=== PATIENT | female | born 1950 | race Caucasian/White ===

== ENCOUNTER 2023-01-09 12:05 | Observation (INO) ==
[2023-01-09] MEDS ORDERED: IOPAMIDOL 100 ML BOTTLE IV ONE ×2 (12:06→18:56)
[2023-01-09] MEDS ORDERED: 0.9 % SODIUM CHLORIDE 1,000 ML IV ONE (12:21)
[2023-01-09] MEDS ORDERED: ACETAMINOPHEN 325 MG TABLET PO ONE (12:25)
[2023-01-09] MEDS ORDERED: cefTRIAXone 1 GM VIAL IV SCH (12:30)
[2023-01-09 12:37] LABS: POC Calcium, Ionized 1.07 (1.16-1.32); POC Creatinine 0.9 (0.6-1.2); POC Potassium 3.3 (3.3-5.1)
[2023-01-09 13:19] LABS: Basophils # (Auto) 0.04 K/mcL (0.00-0.30); Basophils % (Auto) 0.2 % (0.0-2.0); Eosinophils # (Auto) 0 K/mcL (0.00-0.70); Eosinophils % (Auto) 0 % (0.0-7.0); Hematocrit 39.2 % (34.1-44.9); Hemoglobin 13.1 g/dL (11.2-15.7); Lymphocytes # (Auto) 1.11 K/mcL (1.50-4.80); Lymphocytes % (Auto) 4.2 % (15.5-49.0); Mean Cell Volume 85.8 fL (80.0-100.0); Mean Corpuscular HGB Conc 33.4 g/dL (31.0-36.0); Mean Platelet Volume 10.6 fL (8.8-12.5); Monocytes # (Auto) 2.48 K/mcL (0.10-0.90); Monocytes % (Auto) 9.3 % (1.0-12.0); Neutrophils % (Auto) 85.4 % (38.0-78.0); Platelet Count 354 K/mcL (140-440); RBC 4.57 M/mcL (3.59-5.38); Red Cell Distribution Width 14.8 % (11.5-14.5); WBC 26.6 K/mcL (4.5-11.0)
--- NOTE | 2023-01-09 13:34 | XRay Report ---
CLINICAL INFORMATION: Dyspnea COMPARISON: 12/18/2022 TECHNIQUE: Portable FINDINGS: The heart size, mediastinum and pulmonary vessels are unremarkable. Large wedge-shaped density in the lateral right mid thorax spans 10 x 3 cm. A moderate wedge-shaped density seen in the lateral mid left thorax 7 x 3 cm. These are new since the comparison exam less than one month prior. Suspect either atypical infiltrate or pulmonary infarct. The right midthoracic density could also represent loculated pleural fluid. Minor left basilar atelectasis noted. IMPRESSION: Large wedge-shaped pleural-based density lateral mid thorax (10 x 3 cm). Moderate wedge-shaped density lateral mid thorax 7 x 3 cm. Atypical infiltrates versus pulmonary infarcts versus pleural fluid. Suggest: CT pulmonary angiogram Interpreted and Authenticated by: Oscar Barnes 01/09/23
--- NOTE | 2023-01-09 13:37 | Emergency Department Note ---
SOB HPI General Chief Complaint: Shortness of Breath/Dyspnea Stated Complaint: SOB Time Seen by Provider: 01/09/23 12:10 Source: patient Mode of arrival: ambulatory Limitations: no limitations History of Present Illness HPI Narrative: 72-year-old female patient with a history of psoriatic arthritis on immunosuppressive medications presents with complaints of shortness of breath. They returned from [place] this morning and have been traveling for the past 2 days. When they got off the plane today she was short of breath and her states that she was obtunded and not responsive. She does have a history of asthma and they gave her her short acting albuterol treatment, but this was not effective. For this reason they come to the ER for evaluation. Patient states that they went to [place] 2 weeks ago and at that time both of them had a cold. She started feeling more short of breath about 7 days ago. She denies fever/chills/sweats. The patient presents with tachycardia and a low-grade temperature of 100 Fahrenheit. She denies chest pain, denies a cardiac history. She does have a history of DVT with history of cancer. She was previously on Eliquis but has not taken this for some time. She does take a natural K-1 supplement. Related Data Home Medications Medication Instructions Recorded Confirmed albuterol sulfate 90 mcg/actuation 2 puff inhalation .Q4-6H PRN 06/23/18 01/09/23 aerosol inhaler (ProAir HFA) Dyspnea fluticasone furoate 200 1 inh inhalation QDAY 06/23/18 01/09/23 mcg-vilanterol 25 mcg/dose inhalation powder (Breo Ellipta) cholecalciferol (vitamin D3) 25 4,000 unit PO QDAY 11/06/20 01/09/23 mcg (1,000 unit) capsule Allergies Allergy/AdvReac Type Severity Reaction Status Date / Time chlorhexidine Allergy Unknown Rash Verified 12/22/22 08:14 ibuprofen Allergy Unknown Lip Verified 12/22/22 08:14 Swelling Review of Systems ROS ROS Narrative: Narrative: All systems ED: reviewed and negative except as stated. [facility] Narrative Patient History Narrative: Narrative: Medical/Surgical/Family History All Active Problems (Updated 01/09/23 @ 17:57 by Charis Castañeda PA-C) Obese (Chronic) Seborrheic keratosis (Chronic) Postmenopausal bleeding (Chronic) Adenocarcinoma of uterus (Chronic) DVT (deep venous thrombosis) (Chronic) Elevated blood pressure reading without diagnosis of hypertension (Chronic) Vitamin D deficiency (Chronic) Breast cyst (Chronic) Liver mass (Chronic) Pulmonary nodule (Chronic) Asthma (Chronic) Psoriasis (Chronic) Arthritis (Chronic) Psoriatic arthritis (Chronic) Encounter for long-term (current) use of high-risk medication (Chronic) Polyarthralgia (Acute) Osteopenia (Acute) OM (onychomycosis) (Acute) Bilateral chronic knee pain (Acute) Right wrist pain (Acute) Osteoarthritis (Chronic) Crohn disease (Chronic) Liver enzyme elevation (Acute) Pneumonia (Acute) Medical History (Updated 01/09/23 @ 17:57 by Charis Castañeda PA-C) Adenocarcinoma of uterus Arthritis Asthma Bilateral chronic knee pain Breast cyst Crohn disease DVT (deep venous thrombosis) Elevated blood pressure reading without diagnosis of hypertension Encounter for long-term (current) use of high-risk medication L[place]igo Liver mass Obese Osteoarthritis Osteopenia Polyarthralgia Postmenopausal bleeding Psoriasis Psoriatic arthritis Pulmonary nodule Seborrheic keratosis Vitamin D deficiency Surgical History History of hysterectomy History of lymph node biopsy Family History Unknown Breast cancer Cancer Social History Smoking Status: Never smoker Alcohol Intake Frequency: holiday/special occasion only Exam Narrative Narrative: General: AOx3, NAD, nontoxic appearing. Pleasant and conversant. HEENT: PERRL, EOMI, normocephalic. Moist mucous membranes. Normal facies and normal dentition. Respiratory: Bilateral crackles in the bases. No wheezes. No respiratory distress. Unlabored breathing. Heart: Tachycardic rate and regular rhythm, no murmurs/clicks/rubs. Abdomen: Non-tender, Non distended, normal bowel tones. No organomegaly. Extremities: Warm and well perfused. Bilateral 1+ pitting edema, left greater than right. Patient states this is baseline for her and related to her psoriatic arthritis. DP 2+ bilaterally. No venous stasis. Neuro: No focal deficits. Cranial nerves II-XII grossly normal. Skin: Warm dry, no rashes or lesions, no cyanosis. Psych: Normal mood and affect Heme/Lymph: No abnormal bruising General Limitations: no limitations Course Course Course Narrative: 72-year-old female presents with shortness of breath and meet SIRS criteria Reevaluation(s) Reevaluation #1: Obtain sepsis work-up including lactic acid, blood cultures Initiate 30 mL/kg ideal body weight for fluid rehydration and give 1 g IV ceftriaxone. Obtain chest x-ray, CBC, procalcitonin, chemistry panel Check influenza and COVID screens Urinalysis EKG Reevaluation #2: Chest x-ray shows wedge-shaped infiltrates in the bilateral lungs. No masses. I did speak with Dr. Borrego, radiology, who recommends CT angiogram to rule out pulmonary infarcts as this is suggestive of a pulmonary infarct pattern. Patient does have risk factors with history of DVT on Eliquis With blood cell count is 26,600, and neutrophil count is 22.74. VBG with a lactic acid of 1.8, CO2 is 32.4, venous O2 is 35. pH is 7.44 UA does show markers for infection with moderate bacteria, urine WBCs, and positive leukocyte esterase Procalcitonin is elevated at 1.63 COVID and influenza are negative Patient's heart rate has improved with 1 L of IV fluids and she is now down to 92 bpm. O2 sats 93% on room air. Reevaluation #3: CT angiogram is negative for pulmonary embolus but does show a bilobed organizing pneumonia. I spoken with Dr. Don, pulmonology, and he recommends broad-spectrum antibiotics until her white blood cell count is decreasing. Vital Signs Vital signs: Vital Signs Temperature 100 F H 01/09/23 12:06 Pulse Rate 111 H 01/09/23 12:06 Respiratory Rate 25 H 01/09/23 12:06 Blood Pressure 128/72 01/09/23 12:06 Pulse Oximetry (%) 93 01/09/23 12:06 Oxygen Delivery Method Room Air 01/09/23 12:06 Temperature 100 F H 01/09/23 12:43 Pulse Rate 91 H 01/09/23 16:17 Respiratory Rate 21 01/09/23 16:17 Blood Pressure 104/67 01/09/23 14:16 Pulse Oximetry (%) 93 01/09/23 14:16 Oxygen Delivery Method Room Air 01/09/23 12:06 [facility] Narrative Medical decision making narrative: Complicated pneumonia History of psoriatic arthritis on immunosuppressive medications I have spoken with Dr. Don, pulmonology, and he is recommending admission given the extent of her pneumonia and her significant elevation in white count and left shift. Given the complexity of her presentation, recommendation has been made for bronchoscopy and BAL, but this not available on the weekends. Plan will be for admission and treat with BSA, IV Levaquin. I have reached out to the hospitalist for admission and Dr. Borden has accepted the patient for observation. Venous duplex is pending. Blood cultures are pending. Lab Data 01/09/23 12:30 Labs: Lab Results 01/09/23 01/09/23 01/09/23 Range/Units 12:30 12:30 12:33 WBC 26.6 H (4.5-11.0) K/mcL RBC 4.57 (3.59-5.38) M/mcL Hgb 13.1 (11.2-15.7) g/dL Hct 39.2 (34.1-44.9) % POC Hct 44.0 (36-48) MCV 85.8 (80.0-100.0) fL MCH 28.7 (26.0-34.0) pg MCHC 33.4 (31.0-36.0) g/dL RDW 14.8 H (11.5-14.5) % Plt Count 354 (140-440) K/mcL MPV 10.6 (8.8-12.5) fL Immature Gran % (Auto) 0.9 H (0.0-0.5) % Neut % (Auto) 85.4 H (38.0-78.0) % Lymph % (Auto) 4.2 L (15.5-49.0) % [place] % (Auto) 9.3 (1.0-12.0) % Eos % (Auto) 0 (0.0-7.0) % Baso % (Auto) 0.2 (0.0-2.0) % Lymph # (Auto) 1.11 L (1.50-4.80) K/mcL [place] # (Auto) 2.48 H (0.10-0.90) K/mcL Eos # (Auto) 0 (0.00-0.70) K/mcL Baso # (Auto) 0.04 (0.00-0.30) K/mcL Immature Gran # 0.24 H (0.00-0.05) K/mcl Absolute Neutrophils 22.74 H (1.80-8.00) K/mcL POC VBG pH (7.32-7.42) POC VBG pCO2 at Temp (41-51) POC VBG pO2 (25-40) POC VBG HCO3 (24-28) POC VBG Total CO2 (25-29) POC Venous O2 Sat (40-70) POC VBG Base Excess (-2-2) VBG Lactic Acid (0.5-2) POC Sodium 134 (133-145) POC Potassium 3.3 (3.3-5.1) POC Chloride 100 (96-108) POC Total CO2 22.0 (22-30) POC BUN 23 H (6-20) POC Creatinine 0.9 (0.6-1.2) POC Glucose 137 H (70-105) POC WB Ioniz Calcium 1.07 L (1.16-1.32) Procalcitonin 1.63 H (<0.10) ng/mL Urine Color Urine Appearance (Clear) Urine pH (5.0-9.0) Ur Specific [place] (1.000-1.035) Urine Protein (Negative) mg/dL Urine Glucose (UA) (Negative) mg/dL Urine Ketones (Negative) mg/dL Urine Occult Blood (Negative) mg/dL Urine Nitrate (Negative) Urine Bilirubin (Negative) mg/dL Urine Urobilinogen mg/dL Ur Leukocyte Esterase (Negative) /uL Urine RBC (0-3) /hpf Urine WBC (0-4) /hpf Ur Squamous Epith Cells (0-4) /hpf Ur Transition Epith Cell (0-2) /hpf Urine Bacteria (0) /hpf Granular Casts (0-0) /lph Urine Mucus (None) /hpf Ur Culture Indicated? 01/09/23 01/09/23 Range/Units 12:33 13:34 WBC (4.5-11.0) K/mcL RBC (3.59-5.38) M/mcL Hgb (11.2-15.7) g/dL Hct (34.1-44.9) % POC Hct (36-48) MCV (80.0-100.0) fL MCH (26.0-34.0) pg MCHC (31.0-36.0) g/dL RDW (11.5-14.5) % Plt Count (140-440) K/mcL MPV (8.8-12.5) fL Immature Gran % (Auto) (0.0-0.5) % Neut % (Auto) (38.0-78.0) % Lymph % (Auto) (15.5-49.0) % [place] % (Auto) (1.0-12.0) % Eos % (Auto) (0.0-7.0) % Baso % (Auto) (0.0-2.0) % Lymph # (Auto) (1.50-4.80) K/mcL [place] # (Auto) (0.10-0.90) K/mcL Eos # (Auto) (0.00-0.70) K/mcL Baso # (Auto) (0.00-0.30) K/mcL Immature Gran # (0.00-0.05) K/mcl Absolute Neutrophils (1.80-8.00) K/mcL POC VBG pH 7.44 H (7.32-7.42) POC VBG pCO2 at Temp 32.4 L (41-51) POC VBG pO2 20 L (25-40) POC VBG HCO3 21.9 L (24-28) POC VBG Total CO2 23.0 L (25-29) POC Venous O2 Sat 35.0 L (40-70) POC VBG Base Excess -2.0 (-2-2) VBG Lactic Acid 1.8 (0.5-2) POC Sodium (133-145) POC Potassium (3.3-5.1) POC Chloride (96-108) POC Total CO2 (22-30) POC BUN (6-20) POC Creatinine (0.6-1.2) POC Glucose (70-105) POC WB Ioniz Calcium (1.16-1.32) Procalcitonin (<0.10) ng/mL Urine Color [place] Urine Appearance Cloudy A (Clear) Urine pH 5.0 (5.0-9.0) Ur Specific [place] 1.024 (1.000-1.035) Urine Protein 100 A (Negative) mg/dL Urine Glucose (UA) Negative (Negative) mg/dL Urine Ketones 5 A (Negative) mg/dL Urine Occult Blood 0.20 (Negative) mg/dL Urine Nitrate Negative (Negative) Urine Bilirubin Negative (Negative) mg/dL Urine Urobilinogen 2.0 A mg/dL Ur Leukocyte Esterase 250 A (Negative) /uL Urine RBC 23 H (0-3) /hpf Urine WBC 125 H (0-4) /hpf Ur Squamous Epith Cells 13 H (0-4) /hpf Ur Transition Epith Cell 3 H (0-2) /hpf Urine Bacteria Mod A (0) /hpf Granular Casts 9 H (0-0) /lph Urine Mucus Many A (None) /hpf Ur Culture Indicated? No ED POC Tests ED POC Tests: MEERA - Influenza A Negative MEERA - Influenza B Negative MEERA - SARS Antigen Negative Discharge Plan Patient/Caregiver Discharge Instructions Pt seen by [employer]ER/PA only: Yes Clinical Impression: Pneumonia Patient Disposition: Xfer As Outpt/Obs ([facility]) Follow up with: Teresita Cook MD [Primary Care Provider] - Prescriptions: No Action albuterol sulfate [ProAir HFA] 90 mcg/actuation HFA aerosol inhaler 2 puff INHALATION .Q4-6H PRN (Reason: Dyspnea) fluticasone furoate-vilanterol [Breo Ellipta] 200-25 mcg/dose blister with device 1 inh INHALATION QDAY cholecalciferol (vitamin D3) 25 mcg (1,000 unit) capsule 4,000 unit PO QDAY For this patient encounter, I reviewed the midlevel providers documentation, medical decisionmaking, and treatment plan. I discussed the case with the midlevel provider, although I did not personally evaluate the patient.
[2023-01-09 14:59] LABS: Appearance,Urine CLOUDY (Clear); Bacteria,Urine MOD /hpf (0); Bilirubin,Urine Negative (Negative); Color,Urine AMBER; Culture Indicated,Urine No; Glucose,Urine (UA) Negative (Negative); Ketones,Urine 5 mg/dL (Negative); Leukocyte Esterase,Urine 250 /uL (Negative); Mucus,Urine MANY /hpf; Nitrate,Urine Negative (Negative); Protein,Urine 100 mg/dL (Negative); Specific Gravity,Urine 1.024 (1.000-1.035); Urine Granular Cast 9 /lph (0-0); Urine RBC 23 /hpf (0-3); Urine Squamous Epithelial Cell 13 /hpf (0-4); Urine Transitional Epi Cells 3 /hpf (0-2); Urine WBC 125 /hpf (0-4)
--- NOTE | 2023-01-09 14:59 | Cat Scan Report ---
CLINICAL INFORMATION: Hypoxia and fever COMPARISON: None. TECHNIQUE: 80ml of Isovue-370 were injected intravenously. Using SmartPrep to maximize pulmonary artery opacification, .625mm helical slices were obtained from the lung apices through the lung bases. Following reconstruction, 2.5 mm sagittal, coronal, and axial reformations were processed. The exam was reviewed at mediastinal, lung, and bone windows. The exam was performed using radiation dose optimization techniques including, but not limited to, automated exposure control, adjustment of the mA and/or kV according to patient size and use of iterative reconstruction technique. FINDINGS: Pulmonary parenchymal windows peripherally infiltrates demonstrating a reverse halo (8 =) in the periphery of both upper lobes right middle lobe and lingula the largest, in the posterior segment of the right upper lobe spans 11 x 4 cm. These second largest in the lateral left posterior segment of the left upper lobe is 5.5 cm. A small (four similar lesion is noted in the lateral segment of the right middle lobe and there is a 3.6 cm lesion in the lingula. All of these regions have similar characteristics central groundglass infiltrate with a denser consolidation peripheral ring. Subsegmental atelectasis present in both lung bases. There is a 12 mm pleural-based nodule in the medial segment of the left lower lobe on image 83. Pleural spaces are unremarkable-no effusions. Mediastinal windows show the heart is grossly normal in size and configuration. The central pulmonary arteries are enlarged with the main pulmonary diameter of 3.5 cm mild pulmonary hypertension. No evidence of pulmonary embolus. Thoracic aorta is also normal diameter and well-opacified. Mildly enlarged lymph nodes noted in the lower mediastinum including the hilum precarinal and anterior paratracheal region. They range up to 15 mm. Small hiatal hernia noted. The thyroid is unremarkable. Bone windows show degenerative disc disease throughout the thoracic spine no focal osseous lesions. Images should superior abdomen show a 17 mm densely calcified granuloma in the posterior segment of the right hepatic lobe. No other abnormality in the superior abdomen. IMPRESSION: Scattered reversed halo infiltrates in the periphery of the upper lobes, lingula and right middle lobe. The largest is located in the lateral right upper lobe. This finding is most commonly seen in cryptogenic organizing pneumonia ([employer]). It is also been described with fungal pneumonia particularly mucormycosis and coccidiomycosis disease, PVD acquired pneumonia and TB. Suggest pulmonary consultation Mild central pulmonary artery enlargement compatible with pulmonary hypertension. Small hiatal hernia. 12 mm pleural-based nodule in the medial basilar segment left lower lobe is likely either infectious or a benign subpulmonic lymph node. Consider one-year follow-up chest CT Interpreted and Authenticated by: Oscar Barnes 01/09/23
[2023-01-09] MEDS ORDERED: AZITHROMYCIN 250 MG TABLET PO ONE (15:24)
--- NOTE | 2023-01-09 17:31 | Internal Med History&Physical ---
HPI History of Present Illness Patient information: Note initiated : 01/09/23 at 5:28 pm Service Date, if different from initiated Date: [] Patient: Priya Fish a 72 y/o F admitted on for Shortness of breath. Chief Complaint: [] History of present illness: Ms. Fish is a 72 year old female with a history of asthma, psoriasis on Remicaide infusions, left lower extremity DVT, uterine cancer about 5 years prior now felt to be in remission.the patient presented to the emergency department with her son for shortness of breath, chills, fatigue. The patient says her symptoms started 3 to 4 days ago while she was vacationing in [place]. The patient was vacationing in the [facility] area of [place] with her . He says that they were mostly in town however traveled some into the [place]. The patient says that her symptoms developed at the end of her stay in [place]. She says that her has similar but milder symptoms. In the emergency department, the patient had a high-grade temperature, tachycardia and tachypnea. Laboratory work-up was notable for leukocytosis with left shift. Procalcitonin was elevated at 1.63. A 1 view chest x-ray showed bilateral wedge-shaped densities, atypical infiltrates. A CTA chest was performed and showed scattered reversed halo infiltrates in the periphery of the upper lobes, lingula and right middle lobe. Radiology noted that these findings were most commonly seen in cryptogenic organizing pneumonia however have been described in fungal pneumonias, particularly Mucor mycosis and coccidial mycosis. The patient was started on antibiotics in the ED. Hospital medicine was asked to admit the patient. Review of systems Constitutional: Positive for chills, fevers and fatigue Eyes: no vision changes or pain Cardiovascular: no chest pain, no palpitations Respiratory: Positive positive for dyspnea and cough productive of clear sputum Gastrointestinal: no abdominal pain, no nausea, vomiting, or diarrhea Genitourinary: no dysuria or difficulty voiding Musculoskeletal: Positive for bilateral lower extremity, left more than right. Integumentary: no skin lesion or wound Neurological: no focal weakness or numbness Psychiatric: Positive for anxiety Physical exam Head: Atraumatic, normal inspection. Eyes: normal appearance, no scleral icterus. Neck: full ROM Respiratory: Patient is on room air,, tachypneic, bilateral wheezing and bilateral scattered crackles noted. Cardiovascular: Tachycardia, S1, S2. GI/Abdominal: soft, nontender, no guarding. Extremities: Bilateral lower extremity edema left greater than right. Neurological: CN II-XII intact, intact motor, intact sensation. Psychiatric: normal mood. Skin: Mild bruise appearing lesions on left lower extremity. PFSH PFSH All Active Problems Obese (Chronic) Seborrheic keratosis (Chronic) Postmenopausal bleeding (Chronic) Adenocarcinoma of uterus (Chronic) DVT (deep venous thrombosis) (Chronic) Elevated blood pressure reading without diagnosis of hypertension (Chronic) Vitamin D deficiency (Chronic) Breast cyst (Chronic) Liver mass (Chronic) Pulmonary nodule (Chronic) Asthma (Chronic) Psoriasis (Chronic) Arthritis (Chronic) Psoriatic arthritis (Chronic) Encounter for long-term (current) use of high-risk medication (Chronic) Polyarthralgia (Acute) Osteopenia (Acute) OM (onychomycosis) (Acute) Bilateral chronic knee pain (Acute) Right wrist pain (Acute) Osteoarthritis (Chronic) Crohn disease (Chronic) Liver enzyme elevation (Acute) Medical History Adenocarcinoma of uterus Arthritis Asthma Bilateral chronic knee pain Breast cyst Crohn disease DVT (deep venous thrombosis) Elevated blood pressure reading without diagnosis of hypertension Encounter for long-term (current) use of high-risk medication [place] Liver mass Obese Osteoarthritis Osteopenia Polyarthralgia Postmenopausal bleeding Psoriasis Psoriatic arthritis Pulmonary nodule Seborrheic keratosis Vitamin D deficiency Surgical History History of hysterectomy History of lymph node biopsy Family History Unknown Breast cancer Cancer Social History marital status: occupational status: retired physical activity: none smoking status: Never smoker alcohol intake frequency: holiday/special occasion only MEDS/ALLERGIES Home Medications and Allergies Home Medications Medication Instructions Recorded Confirmed Type albuterol sulfate 90 mcg/actuation 2 puff inhalation .Q4-6H PRN 06/23/18 01/09/23 History aerosol inhaler (ProAir HFA) Dyspnea fluticasone furoate 200 1 inh inhalation QDAY 06/23/18 01/09/23 History mcg-vilanterol 25 mcg/dose inhalation powder (Breo Ellipta) cholecalciferol (vitamin D3) 25 4,000 unit PO QDAY 11/06/20 01/09/23 History mcg (1,000 unit) capsule Allergies Allergy/AdvReac Type Severity Reaction Status Date / Time chlorhexidine Allergy Unknown Rash Verified 12/22/22 08:14 ibuprofen Allergy Unknown Lip Verified 12/22/22 08:14 Swelling EXAM Constitutional Vitals: Temp Pulse Resp BP Pulse Ox O2 Del Method 100 F H 91 H 21 104/67 93 Room Air 01/09/23 12:43 01/09/23 16:17 01/09/23 16:17 01/09/23 14:16 01/09/23 14:16 01/09/23 12:06 DATA Data Completed and Pending Labs: Labs from last 24 hours 01/09/23 01/09/23 01/09/23 13:34 12:33 12:33 WBC RBC Hgb Hct POC Hct 44.0 MCV MCH MCHC RDW Plt Count MPV Immature Gran % (Auto) Neut % (Auto) Lymph % (Auto) [place] % (Auto) Eos % (Auto) Baso % (Auto) Lymph # (Auto) [place] # (Auto) Eos # (Auto) Baso # (Auto) Immature Gran # Absolute Neutrophils POC VBG pH 7.44 H POC VBG pCO2 at Temp 32.4 L POC VBG pO2 20 L POC VBG HCO3 21.9 L POC VBG Total CO2 23.0 L POC Venous O2 Sat 35.0 L POC VBG Base Excess -2.0 VBG Lactic Acid 1.8 POC Sodium 134 POC Potassium 3.3 POC Chloride 100 POC Total CO2 22.0 POC BUN 23 H POC Creatinine 0.9 POC Glucose 137 H POC WB Ioniz Calcium 1.07 L Procalcitonin Urine Color Kiara Urine Appearance Cloudy A Urine pH 5.0 Ur Specific [place] 1.024 Urine Protein 100 A Urine Glucose (UA) Negative Urine Ketones 5 A Urine Occult Blood 0.20 Urine Nitrate Negative Urine Bilirubin Negative Urine Urobilinogen 2.0 A Ur Leukocyte Esterase 250 A Urine RBC 23 H Urine WBC 125 H Ur Squamous Epith Cells 13 H Ur Transition Epith Cell 3 H Urine Bacteria Mod A Granular Casts 9 H Urine Mucus Many A Ur Culture Indicated? No 01/09/23 01/09/23 12:30 12:30 WBC 26.6 H RBC 4.57 Hgb 13.1 Hct 39.2 POC Hct MCV 85.8 MCH 28.7 MCHC 33.4 RDW 14.8 H Plt Count 354 MPV 10.6 Immature Gran % (Auto) 0.9 H Neut % (Auto) 85.4 H Lymph % (Auto) 4.2 L [place] % (Auto) 9.3 Eos % (Auto) 0 Baso % (Auto) 0.2 Lymph # (Auto) 1.11 L [place] # (Auto) 2.48 H Eos # (Auto) 0 Baso # (Auto) 0.04 Immature Gran # 0.24 H Absolute Neutrophils 22.74 H POC VBG pH POC VBG pCO2 at Temp POC VBG pO2 POC VBG HCO3 POC VBG Total CO2 POC Venous O2 Sat POC VBG Base Excess VBG Lactic Acid POC Sodium POC Potassium POC Chloride POC Total CO2 POC BUN POC Creatinine POC Glucose POC WB Ioniz Calcium Procalcitonin 1.63 H Urine Color Urine Appearance Urine pH Ur Specific [place] Urine Protein Urine Glucose (UA) Urine Ketones Urine Occult Blood Urine Nitrate Urine Bilirubin Urine Urobilinogen Ur Leukocyte Esterase Urine RBC Urine WBC Ur Squamous Epith Cells Ur Transition Epith Cell Urine Bacteria Granular Casts Urine Mucus Ur Culture Indicated? A/P Narrative A/P Narrative: Assessment: 72-year-old female with a history of asthma, psoriasis on Remicade, DVT, uterine cancer admitted for atypical pneumonia. #Sepsis versus SIRS secondary to pneumonia #Atypical pneumonia of uncertain etiology -Broad differential to include atypical infections including endemic fungi, organizing pneumonia, ILD. #Left lower extremity edema #Generalized weakness #Asthma #Psoriasis on Remicade infusions #Immunosuppression secondary to Remicade #History of DVT in left lower extremity #History of uterine cancer status post hysterectomy and felt to be in remission Plan -Levofloxacin IV every 24 hours. -MRSA nasal PCR. -Follow blood cultures x2. -Bilateral lower extremity venous duplex. -Follow CBC with differential and procalcitonin. -Scheduled DuoNebs and albuterol nebs as needed. -Consider short treatment course of systemic steroids. -Monitor respiratory status closely. -Home medication reconciliation. -Pulmonology consulted. -Regular diet. -DVT prophylaxis: Lovenox Time Spent With Patient Time: Total time spent is greater than 50% in coordination of care (as documented) at patient's floor/unit and/or counseling patient:
--- NOTE | 2023-01-09 18:48 | Ultrasound Report ---
CLINICAL INFORMATION: Shortness of breath COMPARISON: None. FINDINGS: The entire deep venous system of the right lower extremity including the common femoral, superficial femoral, popliteal and paired trifurcation calf veins are easily compressible and show normal venous blood flow on color and spectral Doppler. No evidence of thrombus On the left side, there is complete thrombotic occlusion of the common femoral, profunda femoral and superficial femoral veins with partial occlusion of the popliteal and paired trifurcation calf veins. IMPRESSION: Extensive DVT throughout the left deep venous system. The right deep venous system is widely patent Interpreted and Authenticated by: Oscar Barnes 01/09/23
[2023-01-09] MEDS ORDERED: APIXABAN 5 MG TABLET PO ONE (18:52)
[2023-01-09] MEDS ORDERED: ALBUTEROL SULFATE 2.5 MG/3 ML NEBULIZER NEB PRN (19:02)
[2023-01-09] MEDS ORDERED: SENNOSIDES 1 TABLET PO PRN (19:02)
[2023-01-09] MEDS ORDERED: ONDANSETRON 4 MG/2 ML VIAL IV PRN (19:02)
[2023-01-09] MEDS ORDERED: LACTULOSE 20 GM/30 ML ORAL.SOL PO PRN (19:02)
[2023-01-09] MEDS: IPRATROPIUM/ALBUTEROL 3 ML AMPUL.NEB NEB SCH ×2 (19:46→22:39)
[2023-01-09] MEDS ORDERED: IPRATROPIUM/ALBUTEROL 3 ML AMPUL.NEB NEB ONE (19:46)
[2023-01-09] MEDS: ACETAMINOPHEN 325 MG TABLET PO PRN (20:42)
[2023-01-09] MEDS: LEVOFLOXACIN 750 MG/150 ML BAG IV SCH (20:45)
[2023-01-09] MEDS: DOCUSATE SODIUM 100 MG CAPSULE PO SCH (22:01)
[2023-01-09] MEDS: 0.9 % SODIUM CHLORIDE 10 ML SYRINGE IV SCH (22:06)
[2023-01-10] MEDS: IPRATROPIUM/ALBUTEROL 3 ML AMPUL.NEB NEB SCH ×6 (03:44→22:55)
[2023-01-10] MEDS: 0.9 % SODIUM CHLORIDE 10 ML SYRINGE IV SCH ×3 (05:53→20:30)
[2023-01-10 06:30] LABS: Basophils # (Auto) 0.06 K/mcL (0.00-0.30); Basophils % (Auto) 0.3 % (0.0-2.0); Eosinophils # (Auto) 0.06 K/mcL (0.00-0.70); Eosinophils % (Auto) 0.3 % (0.0-7.0); Hematocrit 37.2 % (34.1-44.9); Hemoglobin 12.3 g/dL (11.2-15.7); Lymphocytes # (Auto) 1.03 K/mcL (1.50-4.80); Lymphocytes % (Auto) 4.4 % (15.5-49.0); Mean Cell Volume 86.7 fL (80.0-100.0); Mean Corpuscular HGB Conc 33.1 g/dL (31.0-36.0); Mean Platelet Volume 10.5 fL (8.8-12.5); Monocytes # (Auto) 1.86 K/mcL (0.10-0.90); Monocytes % (Auto) 7.9 % (1.0-12.0); Platelet Count 344 K/mcL (140-440); RBC 4.29 M/mcL (3.59-5.38); Red Cell Distribution Width 15.3 % (11.5-14.5); WBC 23.5 K/mcL (4.5-11.0)
[2023-01-10] MEDS: ACETAMINOPHEN 325 MG TABLET PO PRN ×3 (06:51→22:29)
[2023-01-10] MEDS: DOCUSATE SODIUM 100 MG CAPSULE PO SCH ×2 (07:05→20:32)
[2023-01-10 07:45] LABS: ALT/SGPT 14 U/L (<40); AST/SGOT 34 U/L (<32); Albumin 2.7 gm/dL (3.2-5.2); Albumin/Globulin Ratio 0.6 (1.0-2.3); Alkaline Phosphatase 41 U/L (39-117); Bilirubin,Direct < 0.2 mg/dL (0-0.3); Bilirubin,Total 0.4 mg/dL (0.1-1.0); Blood Urea Nitrogen 18 mg/dL (8-23); Calcium 8.6 mg/dL (8.6-10.4); Carbon Dioxide 23 mmol/L (22-30); Chloride 101 mmol/L (96-108); Globulin 4.8 gm/dL (2.2-3.7); Glomerular Filtration Rate 72; Glucose 116 mg/dL (70-105); Lactate Dehydrogenase 239 U/L (135-225); Phosphorous 2.1 mg/dL (2.5-4.5); Triglycerides 103 mg/dL (<150); Uric Acid 5.8 mg/dL (2.5-8.0)
[2023-01-10] MEDS ORDERED: AZITHROMYCIN 250 MG TABLET PO SCH (09:00)
[2023-01-10] MEDS ORDERED: ENOXAPARIN 40 MG/0.4 ML SYRINGE SQ SCH (09:00)
[2023-01-10] MEDS ORDERED: APIXABAN 5 MG TABLET PO SCH (09:00)
--- NOTE | 2023-01-10 11:12 | EKG ---
[facility] Test Date: 2023-01-09 Pat Name: Priya Fish Department: ED Room: Gender: Female Vp Production: SS : 1950 Requested By: Charis Castañeda Order Number: [id number] Reading MD: Raymond Corbin Measurements Intervals [place] Rate: 103 P: 69 NH: 133 QRS: 20 QRSD: 86 T: 53 QT: 333 QTc: 436 Interpretive Statements Sinus tachycardia Electronically Signed On 01-10-2023 11:12:45 PST by Raymond Corbin /[email or web address]/[id number]
--- NOTE | 2023-01-10 11:12 | EKG ---
[facility] Test Date: 2023-01-09 Pat Name: Priya Fish Department: ED Room: Gender: Female [employer]: SS : 1950 Requested By: Charis Castañeda Order Number: [id number] Reading MD: Raymond Corbin Measurements Intervals [place] Rate: 105 P: 53 ME: 133 QRS: 13 QRSD: 92 T: 50 QT: 322 QTc: 426 Interpretive Statements Sinus tachycardia Ventricular premature complex Probable left atrial enlargement Electronically Signed On 01-10-2023 11:12:07 PST by Raymond Corbin /[email or web address]/[id number]/[id number]
--- NOTE | 2023-01-10 11:28 | Internal Med Progress Note ---
SUBJECTIVE Subjective Patient information: Note initiated : 01/10/23 at 11:26 am Service Date, if different from initiated Date: [] Patient: Priya Fish 72 y/o F admitted on 01/09/23 for Shortness of breath. Chief Complaint: [] Interval history: Ms. Fish is a 72 year old female with a history of asthma, psoriasis on Remicaide infusions, left lower extremity DVT, uterine cancer about 5 years prior now felt to be in remission.the patient presented to the emergency department with her son for shortness of breath, chills, fatigue. The patient says her symptoms started 3 to 4 days ago while she was vacationing in [place]. The patient was vacationing in the [facility] area of [place] with her . He says that they were mostly in town however traveled some into the countryside. The patient says that her symptoms developed at the end of her stay in [place]. She says that her has similar but milder symptoms. In the emergency department, the patient had a high-grade temperature, tachycardia and tachypnea. Laboratory work-up was notable for leukocytosis with left shift. Procalcitonin was elevated at 1.63. A 1 view chest x-ray showed bilateral wedge-shaped densities, atypical infiltrates. A CTA chest was performed and showed scattered reversed halo infiltrates in the periphery of the upper lobes, lingula and right middle lobe. Radiology noted that these findings were most commonly seen in cryptogenic organizing pneumonia however have been described in fungal pneumonias, particularly Mucor mycosis and coccidial mycosis. The patient was started on antibiotics in the ED. Hospital medicine was asked to admit the patient. 01/10 The patient did require oxygen supplementation overnight. Leukocytosis has improved somewhat but still elevated at 23,500. CRP elevated at 38.8. MRSA nasal PCR was negative. Procalcitonin trended down slightly compared to yesterday. Blood cultures pending. The patient continues to have fevers on levofloxacin. Bilateral lower extremity venous duplex was positive for DVT in t he left lower extremity, chronicity of the thrombosis unclear as the patient had a prior DVT in that extremity that was around the time she had a hysterectomy for uterine cancer. The patient was started on Eliquis with DVT dosing yesterday evening. Physical exam Head: Atraumatic, normal inspection. Eyes: normal appearance, no scleral icterus. Neck: full ROM Respiratory: Patient is on room air,, tachypneic, bilateral wheezing and bilateral scattered crackles noted. Cardiovascular: Tachycardia, S1, S2. GI/Abdominal: soft, nontender, no guarding. Extremities: Bilateral lower extremity edema left greater than right. Neurological: CN II-XII intact, intact motor, intact sensation. Psychiatric: normal mood. Skin: Mild bruise appearing lesions on left lower extremity. Constitutional Vitals: Vital Signs Temp Pulse Resp BP Pulse Ox O2 Del Method O2 Flow Rate 98 F 91 H 23 H 110/63 92 Nasal Cannula 2 01/10/23 07:36 01/10/23 10:00 01/10/23 10:00 01/10/23 10:00 01/10/23 10:00 01/10/23 10:00 01/10/23 10:00 Period Temp Pulse Resp BP Sys/[place] Pulse Ox O2 Del Method O2 Flow Rate Last 24 Hr 97.3 F-101.4 F 88-111 14-25 101-141/55-84 90-100 Nasal Cannula-Room Air 2-4 Intake and Output 01/09/23 01/10/23 01/10/23 19:59 03:59 11:59 Intake Total 1000 150 Output Total 150 350 Balance 850 150 -350 Weight 81.193 kg Intake & Output: Intake & Output 01/09/23 01/10/23 01/10/23 19:59 03:59 11:59 Intake Total 1000 150 Output Total 150 350 Balance 850 150 -350 Weight 81.193 kg Intake: IV 1000 150 Sodium Chloride 0.9% 1,000 ml @ 1000 Wide Open IV .Q0M ONE Rx#: [id number] Oral 0 0 Output: Void Amount 150 350 Other: Urine Appearance Clear Clear Urine Color Red Brown Dark Kiara Tea Colored Red Brown Stool Size Moderate Stool Color Brown Stool Consistency Loose # Voids 1 # Bowel Movements 1 # of times incontinent of 1 Bowels OBJ DATA Labs 01/10/23 05:05 01/10/23 05:05 Labs: Abnormal Lab Results 01/10/23 01/10/23 01/10/23 05:05 05:05 05:05 WBC 23.5 H RDW 15.3 H Immature Gran % (Auto) 1.1 H Neut % (Auto) 86.0 H Lymph % (Auto) 4.4 L Lymph # (Auto) 1.03 L Moca # (Auto) 1.86 H Immature Gran # 0.25 H Absolute Neutrophils 20.24 H POC VBG pH POC VBG pCO2 at Temp POC VBG pO2 POC VBG HCO3 POC VBG Total CO2 POC Venous O2 Sat POC BUN Glucose 116 H POC Glucose POC WB Ioniz Calcium Phosphorus 2.1 L GGT 37 H AST 34 H Lactate Dehydrogenase 239 H C-Reactive Protein 38.80 H Albumin 2.7 L Globulin 4.8 H Albumin/Globulin Ratio 0.6 L Procalcitonin 1.41 H Urine Appearance Urine Protein Urine Ketones Urine Urobilinogen Ur Leukocyte Esterase Urine RBC Urine WBC Ur Squamous Epith Cells Ur Transition Epith Cell Urine Bacteria Granular Casts Urine Mucus 01/09/23 01/09/23 01/09/23 13:34 12:33 12:33 WBC RDW Immature Gran % (Auto) Neut % (Auto) Lymph % (Auto) Lymph # (Auto) Moca # (Auto) Immature Gran # Absolute Neutrophils POC VBG pH 7.44 H POC VBG pCO2 at Temp 32.4 L POC VBG pO2 20 L POC VBG HCO3 21.9 L POC VBG Total CO2 23.0 L POC Venous O2 Sat 35.0 L POC BUN 23 H Glucose POC Glucose 137 H POC WB Ioniz Calcium 1.07 L Phosphorus GGT AST Lactate Dehydrogenase C-Reactive Protein Albumin Globulin Albumin/Globulin Ratio Procalcitonin Urine Appearance Cloudy A Urine Protein 100 A Urine Ketones 5 A Urine Urobilinogen 2.0 A Ur Leukocyte Esterase 250 A Urine RBC 23 H Urine WBC 125 H Ur Squamous Epith Cells 13 H Ur Transition Epith Cell 3 H Urine Bacteria Mod A Granular Casts 9 H Urine Mucus Many A 01/09/23 01/09/23 12:30 12:30 WBC 26.6 H RDW 14.8 H Immature Gran % (Auto) 0.9 H Neut % (Auto) 85.4 H Lymph % (Auto) 4.2 L Lymph # (Auto) 1.11 L Moca # (Auto) 2.48 H Immature Gran # 0.24 H Absolute Neutrophils 22.74 H POC VBG pH POC VBG pCO2 at Temp POC VBG pO2 POC VBG HCO3 POC VBG Total CO2 POC Venous O2 Sat POC BUN Glucose POC Glucose POC WB Ioniz Calcium Phosphorus GGT AST Lactate Dehydrogenase C-Reactive Protein Albumin Globulin Albumin/Globulin Ratio Procalcitonin 1.63 H Urine Appearance Urine Protein Urine Ketones Urine Urobilinogen Ur Leukocyte Esterase Urine RBC Urine WBC Ur Squamous Epith Cells Ur Transition Epith Cell Urine Bacteria Granular Casts Urine Mucus Meds: Medications Acetaminophen (Acetaminophen 325 Mg Tablet) 650 mg PO Q6HP PRN; Protocol PRN Reason: Per Pain Protocol/Fever > 101 Last Admin: 01/10/23 06:51 Dose: 650 mg Albuterol Sulfate (Albuterol Sulfate 2.5 Mg/3 Ml Nebulizer) 2.5 mg NEB Q2HP PRN PRN Reason: wheezing Albuterol/Ipratropium (Ipratropium/Albuterol 3 Ml Ampul.Neb) 3 ml NEB Q4HRT [facility] Last Admin: 01/10/23 10:57 Dose: Not Given Apixaban (Apixaban 5 Mg Tablet) 10 mg PO BID [facility] Last Admin: 01/10/23 10:06 Dose: 10 mg Docusate Sodium (Docusate Sodium 100 Mg Capsule) 100 mg PO BID [facility] Last Admin: 01/10/23 07:05 Dose: Not Given Levofloxacin (Levaquin) 750 mg in 150 mls @ 100 mls/hr IV Q24H [facility]; Protocol Last Infusion: 01/10/23 00:39 Dose: Infused Lactulose (Lactulose 20 Gm/30 Ml Oral.Barbara) 10 gm PO DAILYP PRN PRN Reason: Constipation Ondansetron HCl (Ondansetron 4 Mg/2 Ml Vial) 4 mg IV Q4HP PRN; Protocol PRN Reason: Nausea And Vomiting Senna (Sennosides 1 Tablet) 2 tab PO HSP PRN PRN Reason: Constipation Sodium Chloride (0.9 % Sodium Chloride 10 Ml Syringe) 10 ml IV Q8 [facility] Last Admin: 01/10/23 05:53 Dose: 10 ml A/P Narrative A/P Narrative: Assessment: 72-year-old female with a history of asthma, psoriasis on Remicade, DVT, uterine cancer admitted for sepsis secondary to atypical pneumonia of uncertain cause. Patient was also found to have a left lower extremity DVT, CTA chest did not show pulmonary embolism. #Sepsis versus SIRS secondary to pneumonia #Acute hypoxic respiratory failure #Atypical pneumonia of uncertain etiology -Broad differential to include atypical infections including endemic fungi, organizing pneumonia, ILD. #Left lower extremity DVT #Generalized weakness #Asthma #Psoriasis on Remicade infusions #Immunosuppression secondary to Remicade #History of DVT in left lower extremity #History of uterine cancer status post hysterectomy and felt to be in remission Plan -Continue levofloxacin IV every 24 hours. -Follow blood cultures x2. -Oxygen supplementation as needed. -Eliquis twice daily with DVT dosing. -Scheduled DuoNebs and albuterol nebs as needed. -Consider short treatment course of systemic steroids. -Monitor respiratory status closely. -Home medication reconciliation. -Pulmonology consulted. -Regular diet. -DVT prophylaxis: Eliquis -CODE STATUS: Web Assistant Spent With Patient Time: Total time spent is greater than 50% in coordination of care (as documented) at patient's floor/unit and/or counseling patient: QUALITY VTE Deep Vein Thrombosis/Pulmonary Embolism Present on Admission: Yes
[2023-01-10] MEDS: LEVOFLOXACIN 750 MG/150 ML BAG IV SCH (13:02)
[2023-01-10] MEDS ORDERED: 0.9 % SODIUM CHLORIDE 1,000 ML IV ONE (13:25)
--- NOTE | 2023-01-10 13:36 | Consultation ---
DATE OF CONSULTATION: 01/10/2023 Pulmonary consultation is requested in regards to Ms. Priya Fish who presented to the emergency room on 01/09/2023 with shortness of breath. The patient's history was that of having been traveling for 2 weeks [place]. They have stayed at a resort, but had done some traveling in country on tours. She denies of having any unusual exposures in that regard. She states that she and her may have had a slight cold on transitioning onto vacation, but they both had more of a sense of a cold in the last 3 to 5 days of their trip with the patient's tolerating that more well and the patient having a sense of more significant difficulties with cough and such. They took two days to fly back from [place] and on arrival in the [place], Mrs. Fish noted that she was being short of breath. That she was having more cough, although it was nonproductive and there was some suggestions that the patient was less mentally alert by family members. They chose to present to the emergency room for further evaluation. The patient does have a history of uterine cancer, which was resected about five years ago, was complicating venous thrombosis at that time. She reports being on Eliquis for an extended period of time with multiple care providers suggesting that she had probably had enough and chose to stop that therapy on her own. He had not had troubles with thromboembolic disease before or since. She reports being relatively well person otherwise, although she did have diagnosis of asthma in the last 3 to 5 years and had been on bronchodilator therapy with Breo and a nebulizer. She states that her breathing was doing well enough after she got on the Breo Ellipta that she sent her nebulizer back. She apparently had been off on inhaled medicine due to issues of transitioning insurance and payers and prescriptions for the last month or more. The patient is a lifetime non-smoker. She denies tereso or industrial occupations, hobbies or exposures. There are no pets in the homes currently. With her asthma or breathing difficulty, she notes that she is intolerant of aspirin or NSAIDs that her tongue swells. Does not report nasal polyps. The patient denies known cardiac diseases. The patient does have known psoriatic arthritis followed by rheumatology and is on Remicade in that regard. She reports she was intolerant of methotrexate due to liver adverse effects. She has remained on that therapy through her current time. With her acute presentation, she was found to be having a low-grade temperature. Her cough is nonproductive, but she was short of breath. X-ray in the emergency room demonstrated some changes in the periphery of the lungs that would be suspicious for Garcia hump that I saw in the possible peripheral pulmonary thromboembolic disease with pulmonary infarcts. Radiologist recommended CT scan of the chest which was not read as positive for evidence of thromboembolic disease, but did show multiple areas of wedge-type infiltrate in the periphery of the lung. Laboratory evaluation in the emergency room additionally demonstrated that the patient had an elevated white count at 26.6 thousand. Hemoglobin was normal at 13.1 g/dL and the platelet count was normal at 354,000. Her procalcitonin was elevated at 1.63 over a normal of less than 0.1. She had 85.4% neutrophils and an index of immature granulocytes was at 0.24 elevated over an upper range of normal of 0.05. A venous blood gas was performed. The pH was 7.44, the PvCO2 of 32.4 with the PvO2 indicated to be 20L. Systems review otherwise negative except as recorded above. PHYSICAL EXAMINATION: GENERAL: Pleasant was a conversational 72-year-old female having a mild chill during the course of history and physical examination. She reports that she had been having some chills over the last day or so. LUNGS: She did not have a productive-sounding couch. Her lungs had mildly decreased breath sounds in all lung beard with an occasional interstitial sound. HEART: Regular S1, S2. No apparent gallops, rub, jugular venous distension. EXTREMITIES: There was significant bilateral dependent edema greater on the left than the right and the patient noted that that had been going on for a few days. ABDOMEN: Soft. Bowel sounds were present. No apparent tenderness, mass or organomegaly. NEUROLOGIC: Exam was nonfocal. LABORATORY DATA AND IMAGING: As noted above. Recommended ultrasound of the legs in light of the findings there and in the chest. That apparently evolved into the demonstration of significant deep vein thrombosis in the left lower extremity and the patient was placed on Eliquis. Possibility exists that the patient had small peripheral emboli and multiple areas of pulmonary infarcts versus a broader differential of lung exposure and organizing pneumonia or hypersensitivity pneumonitis or other. Urinalysis was obtained and culture requested, but apparently canceled as not indicated. Nitrite was negative, but white cells and casts were present. At this time, would agree with antibiotic coverage and observation of clinical course as well as treatment of venous thrombosis. We will see if the original urine in available for culture just to be thorough with such a procalcitonin and white count. Agree with continued inpatient care, evaluating clinical status and improvement and if blood cultures negative certainly consideration for outpatient regiment at 48+ hours. My general impression is that the changes in the chest likely represent very small thromboembolic disease and pulmonary infarcts. The white blood cell count begs clear explanation. I will get echocardiogram to look for chronic thromboembolic pulmonary hypertension as well as to evaluate the remote possibility of something as unusual as septic emboli from bacterial endocarditis. Of course, ongoing care for her history of obstructive airways disease is appropriate. Thank you for the opportunity to participate in the care of this very pleasant lady. If you have questions, please feel free to call. KJP:chris Job ID: [id number] Doc ID: [id number] Fuentes Don MD [facility]ITAL[facility]ysi
[2023-01-10] MEDS: 0.9 % SODIUM CHLORIDE 1,000 ML IV SCH (16:38)
[2023-01-10] MEDS ORDERED: FLUCONAZOLE 100 MG TABLET PO SCH (18:15)
[2023-01-10 19:15] LABS: Appearance,Urine HAZY (Clear); Bilirubin,Urine Negative (Negative); Color,Urine AMBER; Culture Indicated,Urine yes; Glucose,Urine (UA) Negative (Negative); Ketones,Urine Negative (Negative); Leukocyte Esterase,Urine 75 /uL (Negative); Mucus,Urine MANY /hpf; Nitrate,Urine Negative (Negative); Protein,Urine 100 mg/dL (Negative); Specific Gravity,Urine 1.028 (1.000-1.035); Urine Blood >=1.0 mg/dL (Negative); Urine RBC > 182 /hpf (0-1); Urine Squamous Epithelial Cell 0 /hpf (0-4); Urine WBC 125 /hpf (0-4); Urobilinogen,Urine Negative
[2023-01-10] MEDS ORDERED: FLUCONAZOLE 400 MG/200 ML BAG IV SCH (20:00)
[2023-01-10] MEDS: ENOXAPARIN 80 MG/0.8 ML SYRINGE SQ SCH (20:30)
[2023-01-11] MEDS: 0.9 % SODIUM CHLORIDE 1,000 ML IV SCH ×3 (01:37→20:05)
[2023-01-11] MEDS: IPRATROPIUM/ALBUTEROL 3 ML AMPUL.NEB NEB SCH ×6 (03:45→23:08)
[2023-01-11] MEDS: 0.9 % SODIUM CHLORIDE 10 ML SYRINGE IV SCH ×3 (05:32→20:05)
[2023-01-11 06:24] LABS: Basophils # (Auto) 0.04 K/mcL (0.00-0.30); Basophils % (Auto) 0.2 % (0.0-2.0); Eosinophils # (Auto) 0.02 K/mcL (0.00-0.70); Eosinophils % (Auto) 0.1 % (0.0-7.0); Hematocrit 36.5 % (34.1-44.9); Hemoglobin 11.8 g/dL (11.2-15.7); Lymphocytes # (Auto) 1.76 K/mcL (1.50-4.80); Lymphocytes % (Auto) 10.5 % (15.5-49.0); Mean Cell Volume 88.6 fL (80.0-100.0); Mean Corpuscular HGB Conc 32.3 g/dL (31.0-36.0); Mean Platelet Volume 10.4 fL (8.8-12.5); Monocytes # (Auto) 1.58 K/mcL (0.10-0.90); Monocytes % (Auto) 9.4 % (1.0-12.0); Neutrophils % (Auto) 78.2 % (38.0-78.0); Platelet Count 325 K/mcL (140-440); RBC 4.12 M/mcL (3.59-5.38); Red Cell Distribution Width 15.8 % (11.5-14.5); WBC 16.8 K/mcL (4.5-11.0)
[2023-01-11 07:22] LABS: ALT/SGPT 29 U/L (<40); AST/SGOT 72 U/L (<32); Albumin 2.2 gm/dL (3.2-5.2); Albumin/Globulin Ratio 0.5 (1.0-2.3); Alkaline Phosphatase 38 U/L (39-117); Bilirubin,Direct < 0.2 mg/dL (0-0.3); Bilirubin,Total 0.3 mg/dL (0.1-1.0); Blood Urea Nitrogen 13 mg/dL (8-23); Calcium 8.1 mg/dL (8.6-10.4); Carbon Dioxide 20 mmol/L (22-30); Chloride 106 mmol/L (96-108); Globulin 4.5 gm/dL (2.2-3.7); Glomerular Filtration Rate 89; Glucose 114 mg/dL (70-105); Lactate Dehydrogenase 264 U/L (135-225); Phosphorous 2.2 mg/dL (2.5-4.5); Triglycerides 127 mg/dL (<150); Uric Acid 4.5 mg/dL (2.5-8.0)
[2023-01-11] MEDS: DOCUSATE SODIUM 100 MG CAPSULE PO SCH ×2 (08:47→20:00)
[2023-01-11] MEDS: ENOXAPARIN 80 MG/0.8 ML SYRINGE SQ SCH ×2 (08:51→20:05)
--- NOTE | 2023-01-11 09:04 | Internal Med Progress Note ---
SUBJECTIVE Subjective Patient information: Note initiated : 01/11/23 at 8:59 am Service Date, if different from initiated Date: [] Patient: Priya Fish a 72 y/o F admitted on 01/09/23 for Shortness of breath. Chief Complaint: [] Interval history: Ms. Fish is a 72 year old female with a history of asthma, psoriasis on Remicaide infusions, left lower extremity DVT, uterine cancer about 5 years prior now felt to be in remission.the patient presented to the emergency department with her son for shortness of breath, chills, fatigue. The patient says her symptoms started 3 to 4 days ago while she was vacationing in [place]. The patient was vacationing in the [facility] area of [place] with her . He says that they were mostly in town however traveled some into the countryside. The patient says that her symptoms developed at the end of her stay in [place]. She says that her has similar but milder symptoms. In the emergency department, the patient had a high-grade temperature, tachycardia and tachypnea. Laboratory work-up was notable for leukocytosis with left shift. Procalcitonin was elevated at 1.63. A 1 view chest x-ray showed bilateral wedge-shaped densities, atypical infiltrates. A CTA chest was performed and showed scattered reversed halo infiltrates in the periphery of the upper lobes, lingula and right middle lobe. Radiology noted that these findings were most commonly seen in cryptogenic organizing pneumonia however have been described in fungal pneumonias, particularly Mucor mycosis and coccidial mycosis. The patient was started on antibiotics in the ED. Hospital medicine was asked to admit the patient. 01/10 The patient did require oxygen supplementation overnight. Leukocytosis has improved somewhat but still elevated at 23,500. CRP elevated at 38.8. MRSA nasal PCR was negative. Procalcitonin trended down slightly compared to yesterday. Blood cultures pending. The patient continues to have fevers on levofloxacin. Bilateral lower extremity venous duplex was positive for DVT in the left lower extremity, chronicity of the thrombosis unclear as the patient had a prior DVT in that extremity that was around the time she had a hysterectomy for uterine cancer. The patient was started on Eliquis with DVT dosing yesterday evening. Additionally, given the persistent fevers while on Levaquin the patient was started on fluconazole IV for empiric coverage for possible fungal pneumonia. Multiple fungal studies obtained and sent out. Discussed the patient with pulmonology in [place], pulmonology recommended a bronchoscopy. The patient was waitlisted at [facility] and [facility]. The patient was transition from [facility] to [facility] in anticipation for possible bronchoscopy if the patient is able to transfer to higher level of care. 01/11 Patient feels better today, fever trend has improved. Discussed the patient with infectious disease, ID recommended discontinuing fluconazole as it is unlikely the patient would improve rapidly on antifungals if she really did have a fungal pneumonia. Infectious disease will evaluate the patient and provide recommendations. Patient also had gross hematuria, CT abdomen pelvis ordered for further evaluation. Physical exam Head: Atraumatic, normal inspection. Eyes: normal appearance, no scleral icterus. Neck: full ROM Respiratory: Supplemental oxygen, mild bilateral crackles. Cardiovascular: Regular rate and rhythm, S1, S2. GI/Abdominal: soft, nontender, no guarding. : Gross hematuria noted in bedside commode. Extremities: Bilateral lower extremity edema left greater than right. Neurological: CN II-XII intact, intact motor, intact sensation. Psychiatric: normal mood. Skin: Mild bruise appearing lesions on left lower extremity. Constitutional Vitals: Vital Signs Temp Pulse Resp BP Pulse Ox O2 Del Method O2 Flow Rate 98.8 F 80 22 140/77 90 Room Air 0 01/11/23 08:11 01/11/23 06:01 01/11/23 08:11 01/11/23 08:11 01/11/23 06:01 01/11/23 08:11 01/11/23 08:11 Period Temp Pulse Resp BP Sys/Blanton Pulse Ox O2 Del Method O2 Flow Rate Last 24 Hr 98.0 F-102.3 F 80-102 18-25 101-142/55-84 90-95 Nasal Cannula- Room Air 0-2 Intake and Output 01/10/23 01/11/23 01/11/23 18:59 03:59 11:59 Intake Total Output Total 550 Balance -550 Weight Intake & Output: Intake & Output 01/10/23 01/11/23 01/11/23 18:59 03:59 11:59 Intake Total Output Total 550 Balance -550 Weight Intake: IV Sodium Chloride 0.9% 1,000 ml @ 100 mls/hr IV .Q10H [facility] Rx#: [id number] Oral Output: Void Amount Urine/Stool Mix 450 Stool 100 Other: Meal Percent of Meal Consumed Feeding Ability Urine Appearance Urine Color Red Brown Blood Tinged Stool Size Large Stool Color Brown Yellow Stool Consistency Liquid Watery # Bowel Movements # of times incontinent of 1 Bowels # Emeses OBJ DATA Labs 01/11/23 05:25 01/11/23 05:25 Labs: Abnormal Lab Results 01/11/23 01/11/23 01/10/23 05:25 05:25 17:35 WBC 16.8 H RDW 15.8 H Immature Gran % (Auto) 1.6 H Neut % (Auto) 78.2 H Lymph % (Auto) 10.5 L Lymph # (Auto) Daniels # (Auto) 1.58 H Immature Gran # 0.26 H Absolute Neutrophils 13.11 H POC VBG pH POC VBG pCO2 at Temp POC VBG pO2 POC VBG HCO3 POC VBG Total CO2 POC Venous O2 Sat Potassium 3.1 L Carbon Dioxide 20 L POC BUN Glucose 114 H POC Glucose Calcium 8.1 L POC WB Ioniz Calcium Phosphorus 2.2 L GGT 47 H AST 72 H Alkaline Phosphatase 38 L Lactate Dehydrogenase 264 H C-Reactive Protein Albumin 2.2 L Globulin 4.5 H Albumin/Globulin Ratio 0.5 L Procalcitonin Urine Appearance Hazy A Urine Protein 100 A Urine Ketones Urine Occult Blood >=1.0 A Urine Urobilinogen Ur Leukocyte Esterase 75 A Urine RBC > 182 H Urine WBC 125 H Ur Squamous Epith Cells Ur Transition Epith Cell Urine Bacteria Granular Casts Urine Mucus Many A 01/10/23 01/10/23 01/10/23 05:05 05:05 05:05 WBC 23.5 H RDW 15.3 H Immature Gran % (Auto) 1.1 H Neut % (Auto) 86.0 H Lymph % (Auto) 4.4 L Lymph # (Auto) 1.03 L Daniels # (Auto) 1.86 H Immature Gran # 0.25 H Absolute Neutrophils 20.24 H POC VBG pH POC VBG pCO2 at Temp POC VBG pO2 POC VBG HCO3 POC VBG Total CO2 POC Venous O2 Sat Potassium Carbon Dioxide POC BUN Glucose 116 H POC Glucose Calcium POC WB Ioniz Calcium Phosphorus 2.1 L GGT 37 H AST 34 H Alkaline Phosphatase Lactate Dehydrogenase 239 H C-Reactive Protein 38.80 H Albumin 2.7 L Globulin 4.8 H Albumin/Globulin Ratio 0.6 L Procalcitonin 1.41 H Urine Appearance Urine Protein Urine Ketones Urine Occult Blood Urine Urobilinogen Ur Leukocyte Esterase Urine RBC Urine WBC Ur Squamous Epith Cells Ur Transition Epith Cell Urine Bacteria Granular Casts Urine Mucus 01/09/23 01/09/23 01/09/23 13:34 12:33 12:33 WBC RDW Immature Gran % (Auto) Neut % (Auto) Lymph % (Auto) Lymph # (Auto) Daniels # (Auto) Immature Gran # Absolute Neutrophils POC VBG pH 7.44 H POC VBG pCO2 at Temp 32.4 L POC VBG pO2 20 L POC VBG HCO3 21.9 L POC VBG Total CO2 23.0 L POC Venous O2 Sat 35.0 L Potassium Carbon Dioxide POC BUN 23 H Glucose POC Glucose 137 H Calcium POC WB Ioniz Calcium 1.07 L Phosphorus GGT AST Alkaline Phosphatase Lactate Dehydrogenase C-Reactive Protein Albumin Globulin Albumin/Globulin Ratio Procalcitonin Urine Appearance Cloudy A Urine Protein 100 A Urine Ketones 5 A Urine Occult Blood Urine Urobilinogen 2.0 A Ur Leukocyte Esterase 250 A Urine RBC 23 H Urine WBC 125 H Ur Squamous Epith Cells 13 H Ur Transition Epith Cell 3 H Urine Bacteria Mod A Granular Casts 9 H Urine Mucus Many A 01/09/23 01/09/23 12:30 12:30 WBC 26.6 H RDW 14.8 H Immature Gran % (Auto) 0.9 H Neut % (Auto) 85.4 H Lymph % (Auto) 4.2 L Lymph # (Auto) 1.11 L Daniels # (Auto) 2.48 H Immature Gran # 0.24 H Absolute Neutrophils 22.74 H POC VBG pH POC VBG pCO2 at Temp POC VBG pO2 POC VBG HCO3 POC VBG Total CO2 POC Venous O2 Sat Potassium Carbon Dioxide POC BUN Glucose POC Glucose Calcium POC WB Ioniz Calcium Phosphorus GGT AST Alkaline Phosphatase Lactate Dehydrogenase C-Reactive Protein Albumin Globulin Albumin/Globulin Ratio Procalcitonin 1.63 H Urine Appearance Urine Protein Urine Ketones Urine Occult Blood Urine Urobilinogen Ur Leukocyte Esterase Urine RBC Urine WBC Ur Squamous Epith Cells Ur Transition Epith Cell Urine Bacteria Granular Casts Urine Mucus Meds: Medications Acetaminophen (Acetaminophen 325 Mg Tablet) 650 mg PO Q6HP PRN; Protocol PRN Reason: Per Pain Protocol/Fever > 101 Last Admin: 01/10/23 22:29 Dose: 650 mg Albuterol Sulfate (Albuterol Sulfate 2.5 Mg/3 Ml Nebulizer) 2.5 mg NEB Q2HP PRN PRN Reason: wheezing Albuterol/Ipratropium (Ipratropium/Albuterol 3 Ml Ampul.Neb) 3 ml NEB Q4HRT [facility] Last Admin: 01/11/23 07:00 Dose: Not Given Docusate Sodium (Docusate Sodium 100 Mg Capsule) 100 mg PO BID [facility] Last Admin: 01/11/23 08:47 Dose: Not Given Enoxaparin Sodium (Enoxaparin 80 Mg/0.8 Ml Syringe) 80 mg SQ BID [facility] Last Admin: 01/11/23 08:51 Dose: 80 mg Levofloxacin (Levaquin) 750 mg in 150 mls @ 100 mls/hr IV Q24H [facility]; Protocol Last Infusion: 01/10/23 16:44 Dose: Infused Sodium Chloride (Sodium Chloride 0.9%) 1,000 mls @ 100 mls/hr IV .Q10H [facility] Last Admin: 01/11/23 01:37 Dose: 100 mls/hr Lactulose (Lactulose 20 Gm/30 Ml Oral.Barbara) 10 gm PO DAILYP PRN PRN Reason: Constipation Ondansetron HCl (Ondansetron 4 Mg/2 Ml Vial) 4 mg IV Q4HP PRN; Protocol PRN Reason: Nausea And Vomiting Senna (Sennosides 1 Tablet) 2 tab PO HSP PRN PRN Reason: Constipation Sodium Chloride (0.9 % Sodium Chloride 10 Ml Syringe) 10 ml IV Q8 [facility] Last Admin: 01/11/23 05:32 Dose: Not Given A/P Narrative A/P Narrative: Assessment: 72-year-old female with a history of asthma, psoriasis on Remicade, DVT, uterine cancer admitted for sepsis secondary to atypical pneumonia of uncertain cause. Patient was also found to have a left lower extremity DVT, CTA chest did not show pulmonary embolism. #Sepsis versus SIRS secondary to pneumonia #Acute hypoxic respiratory failure, improved #Atypical pneumonia of uncertain etiology -Broad differential to include atypical infections including endemic fungi, organizing pneumonia, ILD. #Gross hematuria after starting anticoagulation #Left lower extremity DVT #Generalized weakness #Asthma #Psoriasis on Remicade infusions #Immunosuppression secondary to Remicade #History of DVT in left lower extremity #History of uterine cancer status post hysterectomy and felt to be in remission Plan -Continue levofloxacin IV every 24 hours. -Added fluconazole IV yesterday however discontinued today per ID recommendation. -ID consulted. -Follow blood cultures x2. -Follow-up multiple send out labs for fungal infection work-up. -Oxygen supplementation as needed. -CT abdomen pelvis with contrast to evaluate for cause of hematuria. -Lovenox twice daily for DVT therapeutic anticoagulation. -Scheduled DuoNebs and albuterol nebs as needed. -Obtain outside records for prior left lower extremity venous ultrasound for comparison to determine if this DVT is acute or possibly chronic. -On a waitlist at [facility] and [facility]. -Regular diet. -DVT prophylaxis: Eliquis -CODE STATUS: Full -Disposition: Currently inpatient PCU, the patient is on a wait list to transfer to higher level of care however she is improving and may discharge home. Time Spent With Patient Time: Total time spent is greater than 50% in coordination of care (as documented) at patient's floor/unit and/or counseling patient: QUALITY VTE Deep Vein Thrombosis/Pulmonary Embolism Present on Admission: Yes
--- NOTE | 2023-01-11 09:28 | Infectious Disease Consult ---
Telemedicine Intake Consent for assessment and treatment to occur via virtual technology obtained from: Patient Patient location: Intensive Care Unit Any recent travel (within the last 21 days)?: Yes HPI Date of Consult Consult Date: 01/11/23 Primary Care Provider: Teresita Cook Consult Narrative Chief complaint: Shortness of breath Reason for consult: Possible fungal pneumonia History of present illness: 72-year-old female with history of asthma, DVT, adenocarcinoma of the uterus, status post hysterectomy/BSO, psoriasis, Crohn's disease on Remicade presented on 01/09 to the emergency room with shortness of breath, cough, fever. Patient went to [place] for 2 weeks. After 1 week being there she began to have cough, chills, nausea. She was not on her flight back with fatigue and shortness of breath and came to the emergency room. On admission, chest CT sh owed bilateral peripheral infiltrates with reverse halo suggestive of organizing pneumonia, fungal or atypical pneumonia. WBC was 24. Patient was started on levofloxacin and continue to have fever. Fluconazole was added due to concern for possible fungal infection. Her last temperature was 102 last night. Patient is feeling much better today with improvement in energy and she feels she is back to her normal self. Patient was born and lived in [place] all her life. She used to work in the [employer]. She always had a negative PPD. Before starting on Remicade she did had screening fungal and TB exposure and work on negative. cc:: CC: Torsten Borden MD Review of Systems All systems: reviewed and no additional remarkable complaints except as stated PFSH PFSH All Active Problems (Updated 01/09/23 @ 17:57 by Charis Castañeda PA-C) Obese (Chronic) Seborrheic keratosis (Chronic) Postmenopausal bleeding (Chronic) Adenocarcinoma of uterus (Chronic) DVT (deep venous thrombosis) (Chronic) Elevated blood pressure reading without diagnosis of hypertension (Chronic) Vitamin D deficiency (Chronic) Breast cyst (Chronic) Liver mass (Chronic) Pulmonary nodule (Chronic) Asthma (Chronic) Psoriasis (Chronic) Arthritis (Chronic) Psoriatic arthritis (Chronic) Encounter for long-term (current) use of high-risk medication (Chronic) Polyarthralgia (Acute) Osteopenia (Acute) OM (onychomycosis) (Acute) Bilateral chronic knee pain (Acute) Right wrist pain (Acute) Osteoarthritis (Chronic) Crohn disease (Chronic) Liver enzyme elevation (Acute) Pneumonia (Acute) Medical History (Updated 01/09/23 @ 17:57 by Charis Castañeda PA-C) Adenocarcinoma of uterus Arthritis Asthma Bilateral chronic knee pain Breast cyst Crohn disease DVT (deep venous thrombosis) Elevated blood pressure reading without diagnosis of hypertension Encounter for long-term (current) use of high-risk medication Lentigo Liver mass Obese Osteoarthritis Osteopenia Polyarthralgia Postmenopausal bleeding Psoriasis Psoriatic arthritis Pulmonary nodule Seborrheic keratosis Vitamin D deficiency Surgical History History of hysterectomy History of lymph node biopsy Family History Unknown Breast cancer Cancer Social History marital status: occupational status: retired physical activity: none smoking status: Never smoker alcohol intake frequency: holiday/special occasion only MEDS/ALLERGIES Home Medications and Allergies Home Medications Medication Instructions Recorded Confirmed Type albuterol sulfate 90 mcg/actuation 2 puff inhalation .Q4-6H PRN 06/23/18 01/09/23 History aerosol inhaler (ProAir HFA) Dyspnea fluticasone furoate 200 1 inh inhalation QDAY 06/23/18 01/09/23 History mcg-vilanterol 25 mcg/dose inhalation powder (Breo Ellipta) cholecalciferol (vitamin D3) 25 4,000 unit PO QDAY 11/06/20 01/09/23 History mcg (1,000 unit) capsule Allergies Allergy/AdvReac Type Severity Reaction Status Date / Time chlorhexidine Allergy Unknown Rash Verified 12/22/22 08:14 ibuprofen Allergy Unknown Lip Verified 12/22/22 08:14 Swelling Physical Examination Vital Signs Vital signs: Temp Pulse Resp BP Pulse Ox O2 Del Method O2 Flow Rate 98.8 F 80 22 140/77 90 Room Air 0 01/11/23 08:11 01/11/23 06:01 01/11/23 08:11 01/11/23 08:11 01/11/23 06:01 01/11/23 08:11 01/11/23 08:11 Constitutional General appearance: no acute distress Respiratory Effort: normal Results Laboratory Findings 01/11/23 05:25 01/11/23 05:25 Abnormal lab findings: Abnormal Labs 01/09/23 01/09/23 01/09/23 12:30 12:30 12:33 WBC 26.6 H RDW 14.8 H Immature Gran % (Auto) 0.9 H Neut % (Auto) 85.4 H Lymph % (Auto) 4.2 L Lymph # (Auto) 1.11 L [place] # (Auto) 2.48 H Immature Gran # 0.24 H Absolute Neutrophils 22.74 H POC VBG pH POC VBG pCO2 at Temp POC VBG pO2 POC VBG HCO3 POC VBG Total CO2 POC Venous O2 Sat Potassium Carbon Dioxide POC BUN 23 H Glucose POC Glucose 137 H Calcium POC WB Ioniz Calcium 1.07 L Phosphorus GGT AST Alkaline Phosphatase Lactate Dehydrogenase C-Reactive Protein Albumin Globulin Albumin/Globulin Ratio Procalcitonin 1.63 H Urine Appearance Urine Protein Urine Ketones Urine Occult Blood Urine Urobilinogen Ur Leukocyte Esterase Urine RBC Urine WBC Ur Squamous Epith Cells Ur Transition Epith Cell Urine Bacteria Granular Casts Urine Mucus 01/09/23 01/09/23 01/10/23 12:33 13:34 05:05 WBC 23.5 H RDW 15.3 H Immature Gran % (Auto) 1.1 H Neut % (Auto) 86.0 H Lymph % (Auto) 4.4 L Lymph # (Auto) 1.03 L [place] # (Auto) 1.86 H Immature Gran # 0.25 H Absolute Neutrophils 20.24 H POC VBG pH 7.44 H POC VBG pCO2 at Temp 32.4 L POC VBG pO2 20 L POC VBG HCO3 21.9 L POC VBG Total CO2 23.0 L POC Venous O2 Sat 35.0 L Potassium Carbon Dioxide POC BUN Glucose POC Glucose Calcium POC WB Ioniz Calcium Phosphorus GGT AST Alkaline Phosphatase Lactate Dehydrogenase C-Reactive Protein Albumin Globulin Albumin/Globulin Ratio Procalcitonin Urine Appearance Cloudy A Urine Protein 100 A Urine Ketones 5 A Urine Occult Blood Urine Urobilinogen 2.0 A Ur Leukocyte Esterase 250 A Urine RBC 23 H Urine WBC 125 H Ur Squamous Epith Cells 13 H Ur Transition Epith Cell 3 H Urine Bacteria Mod A Granular Casts 9 H Urine Mucus Many A 01/10/23 01/10/23 01/10/23 05:05 05:05 17:35 WBC RDW Immature Gran % (Auto) Neut % (Auto) Lymph % (Auto) Lymph # (Auto) [place] # (Auto) Immature Gran # Absolute Neutrophils POC VBG pH POC VBG pCO2 at Temp POC VBG pO2 POC VBG HCO3 POC VBG Total CO2 POC Venous O2 Sat Potassium Carbon Dioxide POC BUN Glucose 116 H POC Glucose Calcium POC WB Ioniz Calcium Phosphorus 2.1 L GGT 37 H AST 34 H Alkaline Phosphatase Lactate Dehydrogenase 239 H C-Reactive Protein 38.80 H Albumin 2.7 L Globulin 4.8 H Albumin/Globulin Ratio 0.6 L Procalcitonin 1.41 H Urine Appearance Hazy A Urine Protein 100 A Urine Ketones Urine Occult Blood >=1.0 A Urine Urobilinogen Ur Leukocyte Esterase 75 A Urine RBC > 182 H Urine WBC 125 H Ur Squamous Epith Cells Ur Transition Epith Cell Urine Bacteria Granular Casts Urine Mucus Many A 01/11/23 01/11/23 05:25 05:25 WBC 16.8 H RDW 15.8 H Immature Gran % (Auto) 1.6 H Neut % (Auto) 78.2 H Lymph % (Auto) 10.5 L Lymph # (Auto) [place] # (Auto) 1.58 H Immature Gran # 0.26 H Absolute Neutrophils 13.11 H POC VBG pH POC VBG pCO2 at Temp POC VBG pO2 POC VBG HCO3 POC VBG Total CO2 POC Venous O2 Sat Potassium 3.1 L Carbon Dioxide 20 L POC BUN Glucose 114 H POC Glucose Calcium 8.1 L POC WB Ioniz Calcium Phosphorus 2.2 L GGT 47 H AST 72 H Alkaline Phosphatase 38 L Lactate Dehydrogenase 264 H C-Reactive Protein Albumin 2.2 L Globulin 4.5 H Albumin/Globulin Ratio 0.5 L Procalcitonin Urine Appearance Urine Protein Urine Ketones Urine Occult Blood Urine Urobilinogen Ur Leukocyte Esterase Urine RBC Urine WBC Ur Squamous Epith Cells Ur Transition Epith Cell Urine Bacteria Granular Casts Urine Mucus Microbiology: Microbiology 01/11/23 08:27 Sputum source - Expectorated Gram Stain - Final 01/11/23 08:27 Sputum source - Expectorated Sputum Culture - Final 01/11/23 06:31 Stool C. difficile GDH Antigen & Toxins - Final 01/11/23 06:31 Stool C.difficile Toxin B Gene (PCR) - Final 01/09/23 13:01 Blood Blood Culture - Preliminary 01/09/23 12:33 Blood Blood Culture - Preliminary 01/09/23 17:21 Nose MRSA (PCR) - Final A/P Sepsis Sepsis Identified: Yes Time Zero: On admission Narrative Plan of Treatment: 72-year-old immunocompromised patient presents now with bilateral pneumonia. Certainly based on the CT atypical infection such as fungal, AFB, cryptogenic organizing pneumonia can be the etiology. However, patient has an acute onset in this. To be responding to levofloxacin. It is unlikely to be fungal response to fluconazole as fungal infection would be more subacute or chronic and would not respond that quickly. Her WBC is also improving. Recommend we stop the fluconazole for now and monitor the patient on levofloxacin. If she remained afebrile over the next 24 hours then. She can be discharged on p.o. levofloxacin for 10 days total therapy. She should have a repeat CT in 4 weeks to ensure improvement. If no improvement or evolution of the infiltrates that is suggestive of a chronic infection, that a bronchoscopy should be done. Discussed with patient and Dr. Borden Time Spent With Patient Time: Total time spent is greater than 50% in coordination of care (as documented) at patient's floor/unit and/or counseling patient: Initial: Total time with patient: Less than 40 minutes
[2023-01-11] MEDS ORDERED: POTASSIUM CHLORIDE 20 MEQ TABLET PO ONE (11:02)
[2023-01-11] MEDS: LOPERAMIDE 2 MG CAPSULE PO PRN ×3 (11:14→20:05)
[2023-01-11] MEDS: LEVOFLOXACIN 750 MG/150 ML BAG IV SCH (12:48)
--- NOTE | 2023-01-11 15:22 | Cat Scan Report ---
CLINICAL INFORMATION: Gross hematuria COMPARISON: Chest CT two days prior 01/09/2023. TECHNIQUE: 0.625 mm precontrast images were obtained from kidneys through bladder. 90 cc of Isovue-370 were then injected intravenously. 60 seconds and eight minutes later, 0.625 mm helical slices were obtained from the mid heart through the subtrochanteric regions of the femurs. Following reconstruction, 2.5 mm sagittal, coronal and axial reformatted images were obtained through the entire abdomen. The exam was performed using radiation dose optimization techniques including, but not limited to, automated exposure control, adjustment of the mA and/or kV according to patient size and use of iterative reconstruction technique. FINDINGS: Lung bases show tiny bilateral pleural effusion which are new. There is a band of consolidated subsegmental atelectasis in the posterior right lower lobe with a small region in the posterior left lower lobe. 14 mm pleural-based nodule in the medial basilar segment of the left lower lobe is unchanged. The inferior aspect of reversed halo infiltrate in the inferior right lower lobe is again noted. The heart is mildly enlarged. Abdominal images show mild fatty change within the liver which is inhomogeneous. A 19 mm indeterminate low-attenuation lesion is seen in the anterior segment of the right upper lobe in the subdiaphragmatic region. A large (3.5 cm) calcified right lobe is seen in the posterior segment of the right hepatic lobe. The gallbladder and bile ducts are normal colon CBD is 5 mm. Both adrenal glands, spleen, pancreas and aorta, including aortic branches are normal in size and figuration attenuation without focal lesion. There is no free air, free fluid or adenopathy. Both kidneys are normal and symmetric in size, position, configuration and attenuation: The left is 11.8 cm in length and the right is 12 cm in length. No solid or cystic lesions on either kidney. There are no stones or hydronephrosis. The upper collecting systems and ureters are normal. Pelvic images show hysterectomy changes. Neither ovary is identified and presumably either atrophic or surgically absent. Urinary bladder is normal in size configuration without focal lesion. Multiple sigmoid diverticula appreciated, but no evidence of diverticulitis. The ascending and proximal/mid transverse colon demonstrate moderate wall thickening, mucosal enhancement and pericolonic fat edema which suggests infectious or inflammatory colitis or other infiltrative pathology. The region of the appendix, small bowel and stomach are grossly normal. Bone windows show moderate right hip degeneration. No focal osseous abnormalities. An 8 cm hernia in the epigastric region at midline contains only mesenteric fat which appears edematous. IMPRESSION: 1. Both kidneys, upper collecting systems, ureters and urinary bladder are normal-no cause identified for gross hematuria 2. Moderate concentric wall thickening, mucosal enhancement and pericolonic fat edema in the ascending and proximal/mid transverse colon. This could indicate infectious colitis, inflammatory bowel disease or ischemic colitis: suggest referral for colonoscopy. 3. 8 cm hernia in the epigastric region near midline containing mesenteric fat which appears mildly inflamed or edematous. 4. 18 mm indeterminate low-attenuation lesion in the superior right hepatic lobe. Suggest ultrasound to evaluate cystic versus solid. 5. Tiny bilateral pleural effusions-new. Subsegmental atelectasis both lower lobes and the inferior aspect of a reverse halo type infiltrate inferior right lower lobe seen as before. 14 mm pleural-based nodule medial basilar segment left lower lobe again noted. Interpreted and Authenticated by: Oscar Barnes 01/11/23
[2023-01-12] MEDS: IPRATROPIUM/ALBUTEROL 3 ML AMPUL.NEB NEB SCH ×2 (03:35→06:52)
[2023-01-12] MEDS: 0.9 % SODIUM CHLORIDE 1,000 ML IV SCH (04:53)
[2023-01-12] MEDS: 0.9 % SODIUM CHLORIDE 10 ML SYRINGE IV SCH (05:20)
[2023-01-12 06:30] LABS: Basophils # (Auto) 0.06 K/mcL (0.00-0.30); Basophils % (Auto) 0.4 % (0.0-2.0); Eosinophils # (Auto) 0.03 K/mcL (0.00-0.70); Eosinophils % (Auto) 0.2 % (0.0-7.0); Hematocrit 35.7 % (34.1-44.9); Hemoglobin 11.3 g/dL (11.2-15.7); Lymphocytes # (Auto) 2.58 K/mcL (1.50-4.80); Lymphocytes % (Auto) 15.6 % (15.5-49.0); Mean Cell Volume 88.8 fL (80.0-100.0); Mean Corpuscular HGB Conc 31.7 g/dL (31.0-36.0); Mean Platelet Volume 10.6 fL (8.8-12.5); Monocytes # (Auto) 1.94 K/mcL (0.10-0.90); Monocytes % (Auto) 11.7 % (1.0-12.0); Neutrophils % (Auto) 70.4 % (38.0-78.0); Platelet Count 361 K/mcL (140-440); RBC 4.02 M/mcL (3.59-5.38); Red Cell Distribution Width 15.9 % (11.5-14.5); WBC 16.5 K/mcL (4.5-11.0)
[2023-01-12 06:58] LABS: ALT/SGPT 37 U/L (<40); AST/SGOT 79 U/L (<32); Albumin 2.1 gm/dL (3.2-5.2); Albumin/Globulin Ratio 0.5 (1.0-2.3); Alkaline Phosphatase 44 U/L (39-117); Bilirubin,Direct < 0.2 mg/dL (0-0.3); Bilirubin,Total 0.3 mg/dL (0.1-1.0); Blood Urea Nitrogen 6 mg/dL (8-23); Carbon Dioxide 21 mmol/L (22-30); Chloride 107 mmol/L (96-108); Globulin 4.4 gm/dL (2.2-3.7); Glomerular Filtration Rate 95; Glucose 103 mg/dL (70-105); Lactate Dehydrogenase 230 U/L (135-225); Phosphorous 2.7 mg/dL (2.5-4.5); Triglycerides 138 mg/dL (<150); Uric Acid 3.8 mg/dL (2.5-8.0)
[2023-01-12] MEDS: DOCUSATE SODIUM 100 MG CAPSULE PO SCH (08:11)
[2023-01-12] MEDS: ENOXAPARIN 80 MG/0.8 ML SYRINGE SQ SCH (08:13)
--- NOTE | 2023-01-12 11:42 | Discharge Summary ---
Discharge Provider Provider IMPORTANT FOLLOW-UP INFORMATION FOR PCP: 1. F/u on fungal studies 2. F/u with pulmonary 3. Repeat CT in 4 weeks Patient information: Note initiated : 01/12/23 at 11:42 am Service Date, if different from initiated Date: [] Patient: Priya Fish 72 y/o F admitted on 01/09/23 for Shortness of breath. Chief Complaint: [] Date of admission: 01/09/23 18:55 Discharge date: 01/12/23 Primary care physician: Teresita Cook Consults: 01/09/23 Consult to Physician [CONS] Stat Comment: Consulting Provider: Torsten Borden Reason For Exam: Physician to Consult Consult to Physician [CONS] Stat Comment: Consulting Provider: Fuentes Don Reason For Exam: Physician to Consult Consult to Physician [CONS] Stat Comment: Consulting Provider: Fuentes Don Reason For Exam: Physician to Consult 01/11/23 07:25 Consult to Physician [CONS] Routine Comment: Consulting Provider: Alvino SORIA Reason For Exam: Physician to Consult COURSE Hospital Course Hospital course: History of present illness: 72-year-old female with history of asthma, DVT, adenocarcinoma of the uterus, status post hysterectomy/BSO, psoriasis, Crohn's disease on Remicade presented on 01/09 to the emergency room with shortness of breath, cough, fever. Patient went to [place] for 2 weeks. After 1 week being there she began to have cough, chills, nausea. She was not on her flight back with fatigue and shortness of breath and came to the emergency room. On admission, chest CT showed bilateral peripheral infiltrates with reverse halo suggestive of organizi ng pneumonia, fungal or atypical pneumonia. WBC was 24. Patient was started on levofloxacin and continue to have fever. Fluconazole was added due to concern for possible fungal infection. Her last temperature was 102 last night. Patient is feeling much better today with improvement in energy and she feels she is back to her normal self. Patient was born and lived in [place] all her life. She used to work in the hospital. She always had a negative PPD. Before starting on Remicade she did had screening fungal and TB exposure and work on negative. Sepsis Sepsis Identified: Yes Time Zero: On admission Narrative Plan of Treatment: 72-year-old immunocompromised patient presents now with bilateral pneumonia. Certainly based on the CT atypical infection such as fungal, AFB, cryptogenic organizing pneumonia can be the etiology. However, patient has an acute onset in this. To be responding to levofloxacin. It is unlikely to be fungal r esponse to fluconazole as fungal infection would be more subacute or chronic and would not respond that quickly. Her WBC is also improving. Recommend we stop the fluconazole for now and monitor the patient on levofloxacin. If she remained afebrile over the next 24 hours then. She can be discharged on p.o. levofloxacin for 10 days total therapy. She should have a repeat CT in 4 weeks to ensure improvement. If no improvement or evolution of the infiltrates that is suggestive of a chronic infection, that a bronchoscopy should be done. Discussed with patient and Dr. Borden Discharge diagnosis: Acute hypoxemic resp failure, bilateral pneumonia Time Spent with Patient Time attestation: Total time spent providing and/or coordinating discharge services: Time spent: Greater than 30 minutes EXAM Constitutional Vitals: Temp Pulse Resp BP Pulse Ox O2 Del Method O2 Flow Rate 98.9 F 91 H 22 126/71 93 Room Air 2 01/12/23 03:59 01/12/23 08:01 01/12/23 10:26 01/12/23 10:26 01/12/23 10:26 01/12/23 10:26 01/12/23 07:20 General appearance: average body habitus Head Head exam: Present atraumatic, normal inspection and normocephalic Eye Eye exam: Present EOMI, normal appearance and PERRL; Absent conjunctival injection ENT ENT exam: Present normal exam; Absent mucous membranes dry Neck Neck exam: Present full ROM; Absent lymphadenopathy Respiratory Respiratory exam: Present normal respiratory exam and CTAB; Absent decreased breath sounds, respiratory distress or wheezes Cardiovascular Cardiovascular exam: Present normal rate and rhythm and RRR; Absent JVD GI/Abdominal GI/Abdominal exam: Present normal bowel sounds and soft; Absent diminished bowel sounds, distended, guarding, mass, rebound or tenderness Neurological Exam Neurological exam: Present alert, CN II-XII intact and oriented X3 Psychiatric Psychiatric exam: Present normal affect and normal mood Skin Skin exam: Present intact and warm; Absent erythema, pallor, petechiae or rash Discharge Data Data Completed and Pending Labs on day of discharge: Labs from last 24 hours 03/13/23 03/13/23 05:06 05:06 WBC 16.5 H RBC 4.02 Hgb 11.3 Hct 35.7 MCV 88.8 MCH 28.1 MCHC 31.7 RDW 15.9 H Plt Count 361 MPV 10.6 Immature Gran % (Auto) 1.7 H Neut % (Auto) 70.4 Lymph % (Auto) 15.6 [place] % (Auto) 11.7 Eos % (Auto) 0.2 Baso % (Auto) 0.4 Lymph # (Auto) 2.58 [place] # (Auto) 1.94 H Eos # (Auto) 0.03 Baso # (Auto) 0.06 Immature Gran # 0.28 H Absolute Neutrophils 11.63 H Sodium 137 Potassium 3.4 Chloride 107 Carbon Dioxide 21 L Anion Gap 9.0 BUN 6 L Creatinine 0.5 L GFR Calculation 95 Glucose 103 Uric Acid 3.8 Calcium 8.0 L Phosphorus 2.7 Magnesium 1.9 Total Bilirubin 0.3 Direct Bilirubin < 0.2 GGT 59 H AST 79 H ALT 37 Alkaline Phosphatase 44 Lactate Dehydrogenase 230 H Total Protein 6.5 Albumin 2.1 L Globulin 4.4 H Albumin/Globulin Ratio 0.5 L Triglycerides 138 Preliminary micro results at discharge 01/09/23 13:01 Blood Culture - Preliminary Blood 01/10/23 17:35 Urine Culture - Preliminary Urine - Clean Void Mid-Stream 01/09/23 12:33 Blood Culture - Preliminary Blood 01/11/23 08:27 Fungal Smear - Preliminary Sputum source - Expectorated Discharge Plan Patient/Caregiver Discharge Instructions Activity: increase activity as tolerated Instructions: Bacterial Pneumonia (DC), Bacterial Pneumonia (GEN) Prescriptions: New levofloxacin 750 mg tablet 750 mg PO Q24H Qty: 10 0RF albuterol sulfate 0.63 mg/3 mL solution for nebulization 0.63 mg inhalation QID PRN (Reason: shortness of breath or wheezing) Qty: 90 0RF Continued albuterol sulfate [ProAir HFA] 90 mcg/actuation HFA aerosol inhaler 2 puff INHALATION .Q4-6H PRN (Reason: Dyspnea) fluticasone furoate-vilanterol [Breo Ellipta] 200-25 mcg/dose blister with device 1 inh INHALATION QDAY cholecalciferol (vitamin D3) 25 mcg (1,000 unit) capsule 4,000 unit PO QDAY Follow Up Plan Follow up with: Teresita Cook MD [Primary Care Provider] - Patient Disposition: Home Health Service Rehab Potential: Good I certify that the patient requires SNF services: No Overall status at discharge: patient is progressing back to baseline Discharge Orders: Discharge Order (Routine); Ordered 01/12/23 Ordered By: Antonio VAUGHN VTE Deep Vein Thrombosis/Pulmonary Embolism Present on Admission: Yes
[2023-01-16] MEDS ORDERED: APIXABAN 5 MG TABLET PO SCH (21:00)
[2023-01-16 22:31] LABS: Histoplasma Galacto Ag-SO <0.2 ng/mL
== END 2023-01-12 12:53 | disposition home health service (06) ==
LOC: ICU 12:05 → ED 12:05 → ICU 19:00
PROVIDERS: ADMIT Internal Medicine; ATTEND Student in an Organized Health Care Education/Training Program

== ENCOUNTER 2023-01-13 04:52 | Inpatient (IN) ==
[2023-01-13] MEDS ORDERED: IPRATROPIUM/ALBUTEROL 3 ML AMPUL.NEB NEB ONE (05:10)
[2023-01-13] MEDS ORDERED: FUROSEMIDE 40 MG/4 ML VIAL IV ONE (05:10)
[2023-01-13 05:12] LABS: POC Calcium, Ionized 1.17 (1.16-1.32); POC Creatinine 0.4 (0.6-1.2); POC Potassium 3.2 (3.3-5.1)
[2023-01-13] MEDS ORDERED: BENZONATATE 100 MG CAPSULE PO ONE (05:13)
[2023-01-13] MEDS ORDERED: POTASSIUM CHLORIDE 20 MEQ TABLET PO ONE (05:13)
--- NOTE | 2023-01-13 05:13 | Emergency Department Note ---
SOB HPI General Chief Complaint: Shortness of Breath/Dyspnea Stated Complaint: shortness of breath Time Seen by Provider: 01/13/23 05:03 Source: patient Mode of arrival: wheelchair Limitations: no limitations History of Present Illness HPI Narrative: Narrative: Patient presents ED with complaints of shortness of breath since being discharged from the hospital earlier today. Patient was admitted for approximately 3 days for pneumonia. She was discharged home with some oral antibiotics and nebulized breathing treatment. Unfortunately the home health provider was not able to set her up with home nebulizer. She states that when she was sleeping she felt short of breath and she checked her pulse ox and she w as about 88%. She states she was concerned so she came into the ED for further evaluation. She denies wheezes, stridor, cardiac chest pain, heart palpitations. She does report bilateral lower extremity edema which is normal for her but it appears worse. She also reports a cough that makes her feel more short of breath. Patient denies any other alleviating or aggravating factors. Related Data Home Medications Medication Instructions Recorded Confirmed albuterol sulfate 90 mcg/actuation 2 puff inhalation .Q4-6H PRN 06/23/18 01/09/23 aerosol inhaler (ProAir HFA) Dyspnea fluticasone furoate 200 1 inh inhalation QDAY 06/23/18 01/09/23 mcg-vilanterol 25 mcg/dose inhalation powder (Breo Ellipta) cholecalciferol (vitamin D3) 25 4,000 unit PO QDAY 11/06/20 01/09/23 mcg (1,000 unit) capsule Previous Rx's Medication Instructions Recorded albuterol sulfate 0.63 mg/3 mL 0.63 mg (3 mL) inhalation QID PRN 01/12/23 solution for nebulization shortness of breath or wheezing #90 mL levofloxacin 750 mg tablet 750 mg PO Q24H #10 tabs 01/12/23 furosemide 40 mg tablet (Lasix) 40 mg PO QDAY #3 tabs 01/13/23 Allergies Allergy/AdvReac Type Severity Reaction Status Date / Time chlorhexidine Allergy Unknown Rash Verified 12/22/22 08:14 ibuprofen Allergy Unknown Lip Verified 12/22/22 08:14 Swelling Review of Systems ROS ROS Narrative: Narrative: All systems ED: reviewed and negative except as stated. PFSH Narrative Patient History Narrative: Narrative: Medical/Surgical/Family History All Active Problems (Updated 01/13/23 @ 06:56 by Mikey Auguste DO) Obese (Chronic) Seborrheic keratosis (Chronic) Postmenopausal bleeding (Chronic) Adenocarcinoma of uterus (Chronic) DVT (deep venous thrombosis) (Chronic) Elevated blood pressure reading without diagnosis of hypertension (Chronic) Vitamin D deficiency (Chronic) Breast cyst (Chronic) Liver mass (Chronic) Pulmonary nodule (Chronic) Asthma (Chronic) Psoriasis (Chronic) Arthritis (Chronic) Psoriatic arthritis (Chronic) Encounter for long-term (current) use of high-risk medication (Chronic) Polyarthralgia (Acute) Osteopenia (Acute) OM (onychomycosis) (Acute) Bilateral chronic knee pain (Acute) Right wrist pain (Acute) Osteoarthritis (Chronic) Crohn disease (Chronic) Liver enzyme elevation (Acute) Pneumonia (Acute) Pneumonia (Acute) Edema of both legs (Acute) Hypoxia (Acute) Medical History (Updated 01/13/23 @ 06:56 by Mikey Auguste DO) Adenocarcinoma of uterus Arthritis Asthma Bilateral chronic knee pain Breast cyst Crohn disease DVT (deep venous thrombosis) Elevated blood pressure reading without diagnosis of hypertension Encounter for long-term (current) use of high-risk medication [place] Liver mass Obese Osteoarthritis Osteopenia Polyarthralgia Postmenopausal bleeding Psoriasis Psoriatic arthritis Pulmonary nodule Seborrheic keratosis Vitamin D deficiency Surgical History History of hysterectomy History of lymph node biopsy Family History Unknown Breast cancer Cancer Social History Smoking Status: Never smoker Alcohol Intake Frequency: holiday/special occasion only Exam Narrative Narrative: Narrative: General Limitations: no limitations General appearance: Absent in distress ENT ENT: Present normal oropharynx and mucous membranes moist Respiratory Respiratory: Present rales/crackles; Absent respiratory distress, wheezes, stridor or accessory muscle use Cardiovascular Cardiovascular: Present regular rate and normal rhythm Adbominal Abdominal: Present soft; Absent tenderness Extremities Extremities: Present other (1+ bilateral lower extremity edema left worse than right) Neurological Neurological: Present alert and oriented X3 Psychiatric Psychiatric: Present normal affect and normal mood Skin Skin: Present warm (WNL) and intact Course Course Course Narrative: Patient was evaluated for shortness of breath. Chest x-ray was obtained still shows that she has some pneumonia but seems to be improving. Labs show improving leukocytosis. Patient was given nebulized breathing treatment and she felt much better. She also had bilateral lower extremity edema which is pitting left worse than right. She was given IV Lasix. BNP was elevated but unremarkable. Patient states that they are supposed to be given her nebulizer later today. We will go ahead and discharge patient home. Send her home with 3 days worth of Lasix to help with the bilateral lower extremity edema. She is to continue use antibiotics as prescribed Patient to follow with PCP within 3 to 5 days. Patient expressed verbal understanding agreement of plan. As we were setting patient up to be discharge she desatted down to 85%. We did a road test and had patient walk in the ED halls and with ambulation she desatted down to 80%. Patient was placed on 2 L of oxygen via nasal cannula. Do not believe patient to be a safe discharge at this time. Case discussed with hospitalist who has agreed to admit the patient. Consultations Consultation #1: Case discussed with hospitalist who has agreed to admit the patient. Time: 06:55 Vital Signs Vital signs: Vital Signs Temperature 96.9 F L 01/13/23 04:53 Pulse Rate 94 H 01/13/23 04:53 Respiratory Rate 20 01/13/23 04:53 Blood Pressure 150/90 01/13/23 04:53 Pulse Oximetry (%) 92 01/13/23 04:53 Oxygen Delivery Method Room Air 01/13/23 04:53 Temperature 96.9 F L 01/13/23 04:53 Pulse Rate 83 01/13/23 05:56 Respiratory Rate 23 H 01/13/23 05:56 Blood Pressure 129/85 01/13/23 05:31 Pulse Oximetry (%) 97 01/13/23 05:56 Oxygen Delivery Method Nasal Cannula 01/13/23 05:56 Oxygen Flow Rate (L/min) 2 01/13/23 05:56 MDM MDM Narrative Medical decision making narrative: Narrative: Differential Diagnosis Differential Diagnosis: Pneumonia, pleural effusion, fluid overload Medical Records Medical records reviewed: Yes I reviewed the patient's medical records. Lab Data Lab results reviewed: Yes I reviewed the patient's lab results. 01/13/23 05:33 Labs: Lab Results 01/13/23 01/13/23 01/13/23 Range/Units 05:04 05:04 05:32 WBC (4.5-11.0) K/mcL RBC (3.59-5.38) M/mcL Hgb (11.2-15.7) g/dL Hct (34.1-44.9) % POC Hct 40.0 (36-48) MCV (80.0-100.0) fL MCH (26.0-34.0) pg MCHC (31.0-36.0) g/dL RDW (11.5-14.5) % Plt Count (140-440) K/mcL MPV (8.8-12.5) fL Immature Gran % (Auto) (0.0-0.5) % Neut % (Auto) (38.0-78.0) % Lymph % (Auto) (15.5-49.0) % [place] % (Auto) (1.0-12.0) % Eos % (Auto) (0.0-7.0) % Baso % (Auto) (0.0-2.0) % Lymph # (Auto) (1.50-4.80) K/mcL [place] # (Auto) (0.10-0.90) K/mcL Eos # (Auto) (0.00-0.70) K/mcL Baso # (Auto) (0.00-0.30) K/mcL Immature Gran # (0.00-0.05) K/mcl Absolute Neutrophils (1.80-8.00) K/mcL POC VBG pH 7.43 H (7.32-7.42) POC VBG pCO2 at Temp 33.0 L (41-51) POC VBG pO2 44 H (25-40) POC VBG HCO3 21.9 L (24-28) POC VBG Total CO2 23.0 L (25-29) POC Venous O2 Sat 82.0 H (40-70) POC VBG Base Excess -2.0 (-2-2) VBG Lactic Acid 1.8 (0.5-2) POC Sodium 140 (133-145) POC Potassium 3.2 L (3.3-5.1) POC Chloride 106 (96-108) POC Total CO2 23.0 (22-30) POC BUN 6 (6-20) POC Creatinine 0.4 L (0.6-1.2) POC Glucose 100 (70-105) POC WB Ioniz Calcium 1.17 (1.16-1.32) NT-Pro-B Natriuret Pep 622.3 H (<125.0) pg/mL Procalcitonin (<0.10) ng/mL 01/13/23 01/13/23 Range/Units 05:33 05:33 WBC 14.5 H (4.5-11.0) K/mcL RBC 4.53 (3.59-5.38) M/mcL Hgb 12.9 (11.2-15.7) g/dL Hct 38.7 (34.1-44.9) % POC Hct (36-48) MCV 85.4 (80.0-100.0) fL MCH 28.5 (26.0-34.0) pg MCHC 33.3 (31.0-36.0) g/dL RDW 15.5 H (11.5-14.5) % Plt Count 421 (140-440) K/mcL MPV 10.4 (8.8-12.5) fL Immature Gran % (Auto) 2.6 H (0.0-0.5) % Neut % (Auto) 76.7 (38.0-78.0) % Lymph % (Auto) 12.1 L (15.5-49.0) % [place] % (Auto) 7.6 (1.0-12.0) % Eos % (Auto) 0.6 (0.0-7.0) % Baso % (Auto) 0.4 (0.0-2.0) % Lymph # (Auto) 1.75 (1.50-4.80) K/mcL [place] # (Auto) 1.10 H (0.10-0.90) K/mcL Eos # (Auto) 0.08 (0.00-0.70) K/mcL Baso # (Auto) 0.06 (0.00-0.30) K/mcL Immature Gran # 0.38 H (0.00-0.05) K/mcl Absolute Neutrophils 11.12 H (1.80-8.00) K/mcL POC VBG pH (7.32-7.42) POC VBG pCO2 at Temp (41-51) POC VBG pO2 (25-40) POC VBG HCO3 (24-28) POC VBG Total CO2 (25-29) POC Venous O2 Sat (40-70) POC VBG Base Excess (-2-2) VBG Lactic Acid (0.5-2) POC Sodium (133-145) POC Potassium (3.3-5.1) POC Chloride (96-108) POC Total CO2 (22-30) POC BUN (6-20) POC Creatinine (0.6-1.2) POC Glucose (70-105) POC WB Ioniz Calcium (1.16-1.32) NT-Pro-B Natriuret Pep (<125.0) pg/mL Procalcitonin 0.34 H (<0.10) ng/mL Radiology Data Radiology results reviewed: Yes I reviewed the patient's radiology results. Radiology results narrative: Chest x-ray obtained with image reviewed myself which does show pneumonia Core Measures AMI Core Measures Followed: Yes Discharge Plan Patient/Caregiver Discharge Instructions Pt seen by [employer] MAN/PA only: No Clinical Impression: Pneumonia, Edema of both legs, Hypoxia Activity: resume usual activities as tolerated Instructions: Edema (ED) Patient Disposition: Xfer As Outpt/Obs ([facility]) Condition: Fair Follow up with: Teresita Cook MD [Primary Care Provider] - Prescriptions: New furosemide [Lasix] 40 mg tablet 40 mg PO QDAY Qty: 3 0RF No Action albuterol sulfate [ProAir HFA] 90 mcg/actuation HFA aerosol inhaler 2 puff INHALATION .Q4-6H PRN (Reason: Dyspnea) fluticasone furoate-vilanterol [Breo Ellipta] 200-25 mcg/dose blister with device 1 inh INHALATION QDAY cholecalciferol (vitamin D3) 25 mcg (1,000 unit) capsule 4,000 unit PO QDAY levofloxacin 750 mg tablet 750 mg PO Q24H Qty: 10 0RF albuterol sulfate 0.63 mg/3 mL solution for nebulization 0.63 mg inhalation QID PRN (Reason: shortness of breath or wheezing) Qty: 90 0RF
[2023-01-13] MEDS ORDERED: ALBUTEROL SULFATE 5 MG/ML NEB SOLUTION BOTTLE NEB ONE (05:14)
[2023-01-13] MEDS ORDERED: ALBUTEROL SULFATE 2.5 MG/3 ML NEBULIZER NEB ONE (05:37)
[2023-01-13 06:12] LABS: Basophils # (Auto) 0.06 K/mcL (0.00-0.30); Basophils % (Auto) 0.4 % (0.0-2.0); Eosinophils # (Auto) 0.08 K/mcL (0.00-0.70); Eosinophils % (Auto) 0.6 % (0.0-7.0); Hematocrit 38.7 % (34.1-44.9); Hemoglobin 12.9 g/dL (11.2-15.7); Lymphocytes # (Auto) 1.75 K/mcL (1.50-4.80); Lymphocytes % (Auto) 12.1 % (15.5-49.0); Mean Cell Volume 85.4 fL (80.0-100.0); Mean Corpuscular HGB Conc 33.3 g/dL (31.0-36.0); Mean Platelet Volume 10.4 fL (8.8-12.5); Monocytes % (Auto) 7.6 % (1.0-12.0); Neutrophils % (Auto) 76.7 % (38.0-78.0); Platelet Count 421 K/mcL (140-440); RBC 4.53 M/mcL (3.59-5.38); Red Cell Distribution Width 15.5 % (11.5-14.5); WBC 14.5 K/mcL (4.5-11.0)
[2023-01-13] MEDS ORDERED: ACETAMINOPHEN 325 MG TABLET PO PRN (08:31)
[2023-01-13] MEDS ORDERED: ONDANSETRON 4 MG/2 ML VIAL IV PRN (08:31)
--- NOTE | 2023-01-13 08:39 | XRay Report ---
HISTORY: Short of breath, recently diagnosed pneumonia, asthma FINDINGS: There are moderate-sized peripheral infiltrates in the mid thorax bilaterally, right greater than left. Subtle increased lung markings are present in the right lower lobe. Medially in the left lung base, behind the left heart border there is a 1 cm nodule. There is mild atelectasis above the left costophrenic sulcus. The heart size is normal. There is severe arthritis in the left shoulder. Comparison with the recent chest CT done on 01/09/[address] shows no change. On CT scan, the infiltrates had an atypical pattern raising the possibility of Organizing Pneumonia or an atypical infection. IMPRESSION: Stable bilateral infiltrates. Stable small pulmonary nodule in the left lower lobe Interpreted and Authenticated by: Freddy Pedersen 01/13/23
[2023-01-13] MEDS: LEVOFLOXACIN 750 MG TABLET PO SCH (08:56)
[2023-01-13] MEDS ORDERED: ENOXAPARIN 40 MG/0.4 ML SYRINGE SQ SCH (09:00)
[2023-01-13] MEDS: DOCUSATE SODIUM 100 MG CAPSULE PO SCH ×2 (09:22→21:19)
[2023-01-13] MEDS: IPRATROPIUM/ALBUTEROL 3 ML AMPUL.NEB NEB PRN ×2 (13:33→20:57)
[2023-01-13] MEDS: 0.9 % SODIUM CHLORIDE 10 ML SYRINGE IV SCH ×2 (14:17→21:20)
--- NOTE | 2023-01-13 14:25 | Internal Med History&Physical ---
HPI History of Present Illness Patient information: Note initiated : 01/13/23 at 2:21 pm Service Date, if different from initiated Date: [] Patient: Priya Fish a 72 y/o F admitted on 01/13/23 for shortness of breath. Chief Complaint: [SOB] Chief complaint: Dyspnea History of present illness: Ms. Fish is a 72 year old F with a past medical history significant for asthma, uterine adenocarcinoma status post MARK/BSO, psoriasis, Crohn's disease on Remicade who was initially admitted on January 09 for shortness of breath, fevers and chills after she returned from [place]. While she was hospitalized, CT imaging was concerning for peripheral infiltrates with reverse halo sign suggesting organizing pneumonia versus fungal versus atypical pneumonia. Her white blood cell count on admission was 24,000 previously. She was also found to have fevers of 102. During her hospital stay, she was started on fluconazole and Levaquin. Infectious disease were consulted. Because of her rapid improvement, ID thought this was bacterial rather than fungal and discontinued fluconazole. They recommended she be discharged with 10-day course of Levaquin. She was discharged yesterday however returned with progressive shortness of breath. She was hypoxemic with ambulation. Of note her nebulizer treatment was not brought to her home which worsened her reactive airway disease. On presentation, she was hemodynamically stable and afebrile. Her white blood cell count continues to downtrend and is 14.5. The hospital service was asked to admit the patient for further management and evaluation of her hypoxemia. Review of Systems All systems: reviewed and no additional remarkable complaints except as stated Constitutional Constitutional: Present as per HPI EENT Eyes: Present as per HPI; Absent blurry vision Cardiovascular Cardiovascular: Present as per HPI; Absent chest pain, dyspnea, dyspnea on exertion, leg edema or palpatations Respiratory Respiratory: Present as per HPI; Absent cough, dyspnea, dyspnea on exertion, wheezing or stridor Gastrointestinal Gastrointestinal: Present as per HPI; Absent abdominal pain, diarrhea, dysphagia, hematemesis, melena, nausea or vomiting Musculoskeletal Musculoskeletal: Present as per HPI; Absent joint swelling, limited range of motion, muscle cramps, muscle weakness or myalgias Integumentary Integumentary: Present as per HPI; Absent erythema, new lesions, rash or wounds Neurological Neurological: Present as per HPI; Absent abnormal gait, behavioral changes, focal weakness, headache(s), loss of vision, numbness, sensory deficit or syncope Endocrine Endocrine: Absent change in body appearance, fatigue or heat intolerance Hematologic/Lymphatic Hematologic/Lymphatic: Present as per HPI PFSH PFSH All Active Problems (Updated 01/13/23 @ 14:25 by Antonio Cox MD) Acute hypoxemic respiratory failure (Acute) Obese (Chronic) Seborrheic keratosis (Chronic) Postmenopausal bleeding (Chronic) Adenocarcinoma of uterus (Chronic) DVT (deep venous thrombosis) (Chronic) Elevated blood pressure reading without diagnosis of hypertension (Chronic) Vitamin D deficiency (Chronic) Breast cyst (Chronic) Liver mass (Chronic) Pulmonary nodule (Chronic) Asthma (Chronic) Psoriasis (Chronic) Arthritis (Chronic) Psoriatic arthritis (Chronic) Encounter for long-term (current) use of high-risk medication (Chronic) Polyarthralgia (Acute) Osteopenia (Acute) OM (onychomycosis) (Acute) Bilateral chronic knee pain (Acute) Right wrist pain (Acute) Osteoarthritis (Chronic) Crohn disease (Chronic) Liver enzyme elevation (Acute) Pneumonia (Acute) Pneumonia (Acute) Edema of both legs (Acute) Hypoxia (Acute) Medical History (Updated 01/13/23 @ 14:25 by Antonio Cox MD) Adenocarcinoma of uterus Arthritis Asthma Bilateral chronic knee pain Breast cyst Crohn disease DVT (deep venous thrombosis) Elevated blood pressure reading without diagnosis of hypertension Encounter for long-term (current) use of high-risk medication [place] Liver mass Obese Osteoarthritis Osteopenia Polyarthralgia Postmenopausal bleeding Psoriasis Psoriatic arthritis Pulmonary nodule Seborrheic keratosis Vitamin D deficiency Surgical History History of hysterectomy History of lymph node biopsy Family History Unknown Breast cancer Cancer Social History marital status: occupational status: retired physical activity: none smoking status: Never smoker alcohol intake frequency: holiday/special occasion only MEDS/ALLERGIES Home Medications and Allergies Home Medications Medication Instructions Recorded Confirmed Type albuterol sulfate 90 mcg/actuation 2 puff inhalation .Q4-6H PRN 06/23/18 01/13/23 History aerosol inhaler (ProAir HFA) Dyspnea fluticasone furoate 200 1 inh inhalation QDAY 06/23/18 01/13/23 History mcg-vilanterol 25 mcg/dose inhalation powder (Breo Ellipta) cholecalciferol (vitamin D3) 25 4,000 unit PO QDAY 11/06/20 01/13/23 History mcg (1,000 unit) capsule albuterol sulfate 0.63 mg/3 mL 0.63 mg (3 mL) inhalation QID PRN 01/12/23 01/13/23 Rx solution for nebulization shortness of breath or wheezing #90 mL levofloxacin 750 mg tablet 750 mg PO Q24H #10 tabs 01/12/23 01/13/23 Rx apixaban 5 mg tablet (Eliquis) 5 mg PO BID 01/13/23 01/13/23 History magnesium 200 mg tablet 200 mg PO DAILY 01/13/23 01/13/23 History vitamin B complex (B 1 tab PO DAILY 01/13/23 01/13/23 History Complex-Vitamin B12 tablet) Allergies Allergy/AdvReac Type Severity Reaction Status Date / Time ibuprofen Allergy Severe Lip Verified 01/13/23 10:30 Swelling chlorhexidine Allergy Mild Rash Verified 01/13/23 10:30 EXAM Constitutional Vitals: Temp Pulse Resp BP Pulse Ox O2 Del Method O2 Flow Rate 97.0 F 94 H 20 115/88 92 Nasal Cannula 2 01/13/23 12:00 01/13/23 13:39 01/13/23 13:39 01/13/23 12:00 01/13/23 13:39 01/13/23 13:39 01/13/23 13:39 General appearance: average body habitus Head Head exam: Present atraumatic, normal inspection and normocephalic Eye Eye exam: Present EOMI, normal appearance and PERRL; Absent conjunctival injection ENT ENT exam: Present normal exam; Absent mucous membranes dry Neck Neck exam: Present full ROM; Absent lymphadenopathy Respiratory Respiratory exam: Present normal respiratory exam and CTAB; Absent decreased breath sounds, respiratory distress or wheezes Cardiovascular Cardiovascular exam: Present normal rate and rhythm and RRR; Absent JVD GI/Abdominal GI/Abdominal exam: Present normal bowel sounds and soft; Absent diminished bowel sounds, distended, guarding, mass, rebound or tenderness Neurological Exam Neurological exam: Present alert, CN II-XII intact and oriented X3 Psychiatric Psychiatric exam: Present normal affect and normal mood Skin Skin exam: Present intact and warm; Absent erythema, pallor, petechiae or rash DATA Data Completed and Pending Labs: Labs from last 24 hours 01/13/23 01/13/23 01/13/23 05:33 05:33 05:32 WBC 14.5 H RBC 4.53 Hgb 12.9 Hct 38.7 POC Hct MCV 85.4 MCH 28.5 MCHC 33.3 RDW 15.5 H Plt Count 421 MPV 10.4 Immature Gran % (Auto) 2.6 H Neut % (Auto) 76.7 Lymph % (Auto) 12.1 L [place] % (Auto) 7.6 Eos % (Auto) 0.6 Baso % (Auto) 0.4 Lymph # (Auto) 1.75 [place] # (Auto) 1.10 H Eos # (Auto) 0.08 Baso # (Auto) 0.06 Immature Gran # 0.38 H Absolute Neutrophils 11.12 H POC VBG pH POC VBG pCO2 at Temp POC VBG pO2 POC VBG HCO3 POC VBG Total CO2 POC Venous O2 Sat POC VBG Base Excess VBG Lactic Acid POC Sodium POC Potassium POC Chloride POC Total CO2 POC BUN POC Creatinine POC Glucose POC WB Ioniz Calcium NT-Pro-B Natriuret Pep 622.3 H Procalcitonin 0.34 H 01/13/23 01/13/23 05:04 05:04 WBC RBC Hgb Hct POC Hct 40.0 MCV MCH MCHC RDW Plt Count MPV Immature Gran % (Auto) Neut % (Auto) Lymph % (Auto) [place] % (Auto) Eos % (Auto) Baso % (Auto) Lymph # (Auto) [place] # (Auto) Eos # (Auto) Baso # (Auto) Immature Gran # Absolute Neutrophils POC VBG pH 7.43 H POC VBG pCO2 at Temp 33.0 L POC VBG pO2 44 H POC VBG HCO3 21.9 L POC VBG Total CO2 23.0 L POC Venous O2 Sat 82.0 H POC VBG Base Excess -2.0 VBG Lactic Acid 1.8 POC Sodium 140 POC Potassium 3.2 L POC Chloride 106 POC Total CO2 23.0 POC BUN 6 POC Creatinine 0.4 L POC Glucose 100 POC WB Ioniz Calcium 1.17 NT-Pro-B Natriuret Pep Procalcitonin A/P Assessment and plan (1) DVT (deep venous thrombosis): Status: Chronic Qualifiers: DVT location: lower extremity (2) Pneumonia: Status: Acute Qualifiers: Laterality: left Lung location: lower lobe of lung Pneumonia type: due to unspecified organism Qualified Code(s): J18.9 - Pneumonia, unspecified organism (3) Acute hypoxemic respiratory failure: Status: Acute (4) Asthma: Status: Chronic (5) Psoriasis: Status: Chronic (6) Crohn disease: Status: Chronic Narrative A/P Narrative: The patient will likely need home oxygen with RT evaluation. We will make sure her nebulizer treatment is sent to her house. She also need to start treatment for DVT although she was reluctant. She does have a prior history of DVT that was thought to be provoked. We will continue Levaquin, DuoNebs and Pulmicort. Time Spent With Patient Time: Total time spent is greater than 50% in coordination of care (as documented) at patient's floor/unit and/or counseling patient: Initial: Total time with patient: 75 - 90 minutes QUALITY VTE Deep Vein Thrombosis/Pulmonary Embolism Present on Admission: No
[2023-01-13] MEDS: RIVAROXABAN 15 MG TABLET PO SCH (17:07)
[2023-01-13] MEDS: BUDESONIDE 0.5 MG/2 ML AMPUL.NEB NEB SCH (20:57)
[2023-01-13] MEDS ORDERED: BUDESONIDE 1 PUFF INHALER INH SCH (21:00)
[2023-01-13] MEDS ORDERED: SENNOSIDES 1 TABLET PO SCH (21:00)
[2023-01-14] MEDS: 0.9 % SODIUM CHLORIDE 10 ML SYRINGE IV SCH (05:25)
[2023-01-14 06:43] LABS: Basophils # (Auto) 0.05 K/mcL (0.00-0.30); Basophils % (Auto) 0.5 % (0.0-2.0); Eosinophils # (Auto) 0.12 K/mcL (0.00-0.70); Eosinophils % (Auto) 1.2 % (0.0-7.0); Hematocrit 35.6 % (34.1-44.9); Hemoglobin 11.6 g/dL (11.2-15.7); Lymphocytes # (Auto) 2.11 K/mcL (1.50-4.80); Lymphocytes % (Auto) 21.1 % (15.5-49.0); Mean Cell Volume 86.4 fL (80.0-100.0); Mean Corpuscular HGB Conc 32.6 g/dL (31.0-36.0); Mean Platelet Volume 10.1 fL (8.8-12.5); Neutrophils % (Auto) 65.5 % (38.0-78.0); Platelet Count 438 K/mcL (140-440); RBC 4.12 M/mcL (3.59-5.38); Red Cell Distribution Width 15.5 % (11.5-14.5)
[2023-01-14 06:56] LABS: Blood Urea Nitrogen 9 mg/dL (8-23); Calcium 8.2 mg/dL (8.6-10.4); Carbon Dioxide 24 mmol/L (22-30); Chloride 105 mmol/L (96-108); Glomerular Filtration Rate 102; Glucose 98 mg/dL (70-105)
[2023-01-14] MEDS: BUDESONIDE 0.5 MG/2 ML AMPUL.NEB NEB SCH (07:44)
[2023-01-14] MEDS: IPRATROPIUM/ALBUTEROL 3 ML AMPUL.NEB NEB PRN ×2 (07:44→11:47)
[2023-01-14] MEDS: LEVOFLOXACIN 750 MG TABLET PO SCH (08:23)
[2023-01-14] MEDS: DOCUSATE SODIUM 100 MG CAPSULE PO SCH (08:23)
[2023-01-14] MEDS: RIVAROXABAN 15 MG TABLET PO SCH (08:23)
--- NOTE | 2023-01-14 11:55 | Discharge Summary ---
Discharge Provider Provider IMPORTANT FOLLOW-UP INFORMATION FOR PCP: 1. F/u with PCP 2.Complete 10 days of levaquin 3. Continue neb and inhalers 4. Continue home O2 5. CONTINUE anticoagulation for DVT Patient information: Note initiated : 01/14/23 at 11:53 am Service Date, if different from initiated Date: [] Patient: Priya Fish a 72 y/o F admitted on 01/13/23 for shortness of breath. Chief Complaint: [SOB] Date of admission: 01/13/23 08:11 Discharge date: 01/14/23 Primary care physician: Teresita Cook Consults: 01/13/23 Consult to Physician [CONS] Stat Comment: HYPOXIA Consulting Provider: Antonio Cox Reason For Exam: Physician to Consult COURSE Hospital Course Hospital course: History of present illness: Ms. Fish is a 72 year old F with a past medical history significant for asthma, uterine adenocarcinoma status post MARK/BSO, psoriasis, Crohn's disease on Remicade who was initially admitted on January 09 for shortness of breath, fevers and chills after she returned from [place]. While she was hospitalized, CT imaging was concerning for peripheral infiltrates with reverse halo sign suggesting organizing pneumonia versus fungal versus atypical pneumonia. Her white blood cell count on admission was 24,000 previously. She was also found to have fevers of 102. During her hospital stay, she was started on fluconazole and Levaquin. Infectious disease were consulted. Because of her rapid improvement, ID thought this was bacterial rather than fungal and discontinued fluconazole. They recommended she be discharged with 10-day course of Levaq uin. She was discharged yesterday however returned with progressive shortness of breath. She was hypoxemic with ambulation. Of note her nebulizer treatment was not brought to her home which worsened her reactive airway disease. On presentation, she was hemodynamically stable and afebrile. Her white blood cell count continues to downtrend and is 14.5. The hospital service was asked to admit the patient for further management and evaluation of her hypoxemia. Hospital course: The patient had home O2 set up with RT and will require 2 L upon discharge. She also coughed up a mucous plug which will be helped her breathing. She has done well with budesonide and DuoNeb nebulizers. She will continue Levaquin as her white blood cell count has normalized to 10. Of note she should remain on anticoagulation as she does have an extensive DVT. She should follow-up with her PCP within 1 week's time. Discharge diagnosis: Community-acquired pneumonia, acute hypoxemic respiratory failure, asthma Time Spent with Patient Time attestation: Total time spent providing and/or coordinating discharge services: Time spent: Greater than 30 minutes EXAM Constitutional Vitals: Temp Pulse Resp BP Pulse Ox O2 Del Method O2 Flow Rate 97.4 F 84 20 152/91 91 Nasal Cannula 2 01/14/23 08:00 01/14/23 08:00 01/14/23 08:00 01/14/23 08:00 01/14/23 08:00 01/14/23 08:00 01/14/23 08:00 General appearance: average body habitus Head Head exam: Present atraumatic, normal inspection and normocephalic Eye Eye exam: Present EOMI, normal appearance and PERRL; Absent conjunctival injection ENT ENT exam: Present normal exam; Absent mucous membranes dry Neck Neck exam: Present full ROM; Absent lymphadenopathy Respiratory Respiratory exam: Present normal respiratory exam and CTAB; Absent decreased breath sounds, respiratory distress or wheezes Cardiovascular Cardiovascular exam: Present normal rate and rhythm and RRR; Absent JVD GI/Abdominal GI/Abdominal exam: Present normal bowel sounds and soft; Absent diminished bowel sounds, distended, guarding, mass, rebound or tenderness Neurological Exam Neurological exam: Present alert, CN II-XII intact and oriented X3 Psychiatric Psychiatric exam: Present normal affect and normal mood Skin Skin exam: Present intact and warm; Absent erythema, pallor, petechiae or rash Discharge Data Data Completed and Pending Labs on day of discharge: Labs from last 24 hours 01/14/23 01/14/23 05:49 05:48 WBC 10.0 RBC 4.12 Hgb 11.6 Hct 35.6 MCV 86.4 MCH 28.2 MCHC 32.6 RDW 15.5 H Plt Count 438 MPV 10.1 Immature Gran % (Auto) 2.7 H Neut % (Auto) 65.5 Lymph % (Auto) 21.1 [place] % (Auto) 9.0 Eos % (Auto) 1.2 Baso % (Auto) 0.5 Lymph # (Auto) 2.11 [place] # (Auto) 0.90 Eos # (Auto) 0.12 Baso # (Auto) 0.05 Immature Gran # 0.27 H Absolute Neutrophils 6.53 Sodium 138 Potassium 3.3 Chloride 105 Carbon Dioxide 24 Anion Gap 9.0 BUN 9 Creatinine 0.4 L GFR Calculation 102 Glucose 98 Calcium 8.2 L C-Reactive Protein 8.30 H Discharge Plan Patient/Caregiver Discharge Instructions Activity: resume usual activities as tolerated Instructions: Asthma (DC), Using Oxygen at Home (DC) Prescriptions: Continued albuterol sulfate [ProAir HFA] 90 mcg/actuation HFA aerosol inhaler 2 puff INHALATION .Q4-6H PRN (Reason: Dyspnea) fluticasone furoate-vilanterol [Breo Ellipta] 200-25 mcg/dose blister with device 1 inh INHALATION QDAY cholecalciferol (vitamin D3) 25 mcg (1,000 unit) capsule 4,000 unit PO QDAY vitamin B complex [B Complex-Vitamin B12] Tablet 1 tab PO DAILY magnesium 200 mg Tablet 200 mg PO DAILY Eliquis 5 mg tablet 5 mg PO BID levofloxacin 750 mg tablet 750 mg PO Q24H Qty: 10 0RF albuterol sulfate 0.63 mg/3 mL solution for nebulization 0.63 mg inhalation QID PRN (Reason: shortness of breath or wheezing) Qty: 90 0RF Follow Up Plan Follow up with: Teresita Cook MD [Primary Care Provider] - Patient Disposition: Home, Self-Care Prognosis: Fair Rehab Potential: Good I certify that the patient requires SNF services: No Overall status at discharge: patient is progressing back to baseline Discharge Orders: Discharge Order (Routine); Ordered 01/14/23 Ordered By: Antonio VAUGHN VTE Deep Vein Thrombosis/Pulmonary Embolism Present on Admission: No
== END 2023-01-14 14:20 | disposition home or self-care (01) | DRG 193 ==
LOC: ED 04:52 → MEDSUR 08:11
PROVIDERS: ADMIT Student in an Organized Health Care Education/Training Program; ATTEND Student in an Organized Health Care Education/Training Program